=== PATIENT | male | born 1955 | race African-American/Black ===

== ENCOUNTER 2018-08-21 14:43 | Inpatient (IN) | payer MEDICAID ==
[~2018-08-21] VITALS: Ht 190.5 cm; Wt 84.6 kg
[~2018-08-21 14:43] MED LIST: BICA50TA48 PO
[2018-08-21] MEDS ORDERED: ALBUTEROL (0.083%) 2.5MG/3ML NEB HHN STA (15:12)
[2018-08-21] MEDS ORDERED: NITROGLYCERIN OINT 1GM/INCH UDPKT TD ONE (15:15)
[2018-08-21 16:00] LABS: BASOPHILS % 0.8 % (0.0-2.0); HEMATOCRIT. 37.9 % (42.0-52.0); HEMOGLOBIN. 12.5 g/dL (14.0-18.0); LYMPHOCYTES % 14.8 % (20.0-50.0); MEAN CORPUSCULAR HEMOGLOBIN 30.1 pg (28.0-32.0); MEAN CORPUSCULAR VOLUME 91.4 fL (80.0-94.0); MEAN PLATELET VOLUME 9.1 fl (7.4-10.4); MONOCYTES % 7.2 % (2.0-8.0); NEUTROPHILS % 75.2 % (40.0-76.0); PLATELET 204 x1000/uL (130-400); RED BLOOD CELL COUNT 4.15 mill/uL (4.7-6.1); RED CELL DISTRIBUTION WIDTH 16.5 % (11.6-14.6)
[2018-08-21 16:08] LABS: INR 1.1; PARTIAL THROMBOPLASTIN TIME 29.2 sec (23.4-31.0); PROTHROMBIN TIME 11.4 sec (9.1-11.1)
[2018-08-21 16:11] LABS: CHLORIDE 114 mEq/L (98-107)
[2018-08-21] MEDS ORDERED: NITROGLYCERIN 0.4MG TABLET SL SL PRN (16:30)
[2018-08-21] MEDS ORDERED: ASPIRIN 81MG TABLET PO ONE (16:30)
[2018-08-21] MEDS ORDERED: FUROSEMIDE 40MG/4ML VIAL IV ONE (16:30)
[2018-08-21] MEDS ORDERED: LORA10TA7 PO (23:15)
[2018-08-21] MEDS ORDERED: atrovastatin PO (23:32)
[2018-08-21] MEDS ORDERED: METO25TA6 MT (23:32)
[2018-08-21] MEDS ORDERED: ASPI-1159 PO (23:32)
[2018-08-21] MEDS ORDERED: FLUT60LO3 TP (23:32)
[2018-08-21] MEDS ORDERED: LISI-186 PO (23:32)
[2018-08-21] MEDS ORDERED: TAMS0.4C31 PO (23:32)
[2018-08-22] VITALS (8 sets, daily range): BP systolic 108–153; BP diastolic 69–105
[2018-08-22] MEDS ORDERED: METOPROLOL TARTRATE 25MG TABLET PO SCH (09:00)
[2018-08-22] MEDS: LISINOPRIL 20MG TABLET PO SCH (09:14)
[2018-08-22] MEDS: FUROSEMIDE 40MG/4ML VIAL IVP SCH (09:14)
[2018-08-22] MEDS: LORATADINE 10MG TABLET PO SCH (09:14)
[2018-08-22] MEDS: ASPIRIN 81MG TABLET PO SCH (09:15)
[2018-08-22] MEDS: FLUTICASONE PROPIONATE 50MCG/SPRAY BOTTLE BOTHNSTRLS SCH ×2 (09:15→22:37)
[2018-08-22] MEDS: ATORVASTATIN CALCIUM 20MG TABLET PO SCH (20:30)
[2018-08-22] MEDS: CARVEDILOL 6.25 MG TABLET PO SCH (20:31)
[2018-08-22] MEDS: TAMSULOSIN HCL 0.4MG SR CAPSULE PO SCH (20:31)
[2018-08-22] MEDS: HYDROCODONE/ACETAMINOPHEN 5/325MG TABLET PO PRN (22:35)
[2018-08-23 00:01] VITALS: BP 140/95
[2018-08-23 04:07] VITALS: BP 126/88
[2018-08-23 08:00] VITALS: BP 135/103
[2018-08-23] MEDS: FUROSEMIDE 40MG/4ML VIAL IVP SCH ×2 (08:44→17:21)
[2018-08-23] MEDS: ASPIRIN 81MG TABLET PO SCH (08:44)
[2018-08-23] MEDS: LISINOPRIL 20MG TABLET PO SCH (08:45)
[2018-08-23] MEDS: LORATADINE 10MG TABLET PO SCH (08:45)
[2018-08-23] MEDS: CARVEDILOL 6.25 MG TABLET PO SCH (08:45)
[2018-08-23] MEDS: FLUTICASONE PROPIONATE 50MCG/SPRAY BOTTLE BOTHNSTRLS SCH ×2 (08:46→21:24)
[2018-08-23 10:01] VITALS: BP 130/89
[2018-08-23 12:00] VITALS: BP 120/82
[2018-08-23 16:05] VITALS: BP 117/74
[2018-08-23 16:13] LABS: BASOPHILS % 0.9 % (0.0-2.0); EOSINOPHILS % 3.9 % (0.0-5.0); HEMATOCRIT. 37.3 % (42.0-52.0); HEMOGLOBIN. 12.3 g/dL (14.0-18.0); LYMPHOCYTES % 14.4 % (20.0-50.0); MEAN CORPUSCULAR HEMOGLOBIN 29.8 pg (28.0-32.0); MEAN CORPUSCULAR VOLUME 90.5 fL (80.0-94.0); MEAN PLATELET VOLUME 9.2 fl (7.4-10.4); MONOCYTES % 6.9 % (2.0-8.0); NEUTROPHILS % 73.9 % (40.0-76.0); PLATELET 196 x1000/uL (130-400); RED BLOOD CELL COUNT 4.12 mill/uL (4.7-6.1); RED CELL DISTRIBUTION WIDTH 16.7 % (11.6-14.6)
[2018-08-23 16:18] LABS: CHLORIDE 110 mEq/L (98-107)
[2018-08-23] MEDS: CARVEDILOL 12.5MG TABLET PO SCH (21:26)
[2018-08-23] MEDS: TAMSULOSIN HCL 0.4MG SR CAPSULE PO SCH (21:27)
[2018-08-23] MEDS: ATORVASTATIN CALCIUM 20MG TABLET PO SCH (21:27)
[2018-08-24] MEDS: HYDROCODONE/ACETAMINOPHEN 5/325MG TABLET PO PRN (02:20)
[2018-08-24 06:54] LABS: CHLORIDE 109 mEq/L (98-107)
[2018-08-24 08:00] VITALS: BP 132/89
[2018-08-24] MEDS: FLUTICASONE PROPIONATE 50MCG/SPRAY BOTTLE BOTHNSTRLS SCH ×2 (09:39→21:00)
[2018-08-24] MEDS: CARVEDILOL 12.5MG TABLET PO SCH (09:40)
[2018-08-24] MEDS: FUROSEMIDE 40MG/4ML VIAL IVP SCH ×2 (09:40→18:35)
[2018-08-24] MEDS: LORATADINE 10MG TABLET PO SCH (09:40)
[2018-08-24] MEDS: ASPIRIN 81MG TABLET PO SCH (09:40)
[2018-08-24] MEDS: LISINOPRIL 20MG TABLET PO SCH (09:40)
[2018-08-24] MEDS: MAGNESIUM CHLORIDE 64MG TABLET SR PO SCH ×2 (11:28→18:35)
[2018-08-24] MEDS: SPIRONOLACTONE 25MG TABLET PO SCH (11:28)
[2018-08-24 12:00] VITALS: BP 97/62
[2018-08-24 16:00] VITALS: BP 109/71
[2018-08-24 20:06] VITALS: BP 116/75
[2018-08-24] MEDS: ATORVASTATIN CALCIUM 20MG TABLET PO SCH (21:26)
[2018-08-24] MEDS: CARVEDILOL 25MG TABLET PO SCH (21:27)
[2018-08-24] MEDS: TAMSULOSIN HCL 0.4MG SR CAPSULE PO SCH (21:27)
[2018-08-24 22:00] VITALS: BP 116/75
[2018-08-25] VITALS (9 sets, daily range): BP systolic 104–130; BP diastolic 67–80
[2018-08-25] MEDS: SPIRONOLACTONE 25MG TABLET PO SCH (10:33)
[2018-08-25] MEDS: LORATADINE 10MG TABLET PO SCH (10:33)
[2018-08-25] MEDS: LISINOPRIL 20MG TABLET PO SCH (10:33)
[2018-08-25] MEDS: MAGNESIUM CHLORIDE 64MG TABLET SR PO SCH (10:33)
[2018-08-25] MEDS: ASPIRIN 81MG TABLET PO SCH (10:33)
[2018-08-25] MEDS: FUROSEMIDE 40MG/4ML VIAL IVP SCH (10:38)
[2018-08-25] MEDS: CARVEDILOL 25MG TABLET PO SCH (10:38)
== END 2018-08-25 18:45 | disposition home or self-care (01) | DRG 194 ==
LOC: ER 14:43 → 6WST 16:57 → ENRESERV 20:20
PROVIDERS: ADMIT Internal Medicine; ATTEND Internal Medicine
DX: I13.0 Hypertensive heart and chronic kidney disease with heart failure and stage 1 through stage 4 chronic kidney disease, or unspecified chronic kidney disease (principal); E87.8 Other disorders of electrolyte and fluid balance, not elsewhere classified; E44.0 Moderate protein-calorie malnutrition; I27.20 Pulmonary hypertension, unspecified; I08.1 Rheumatic disorders of both mitral and tricuspid valves; I11.0 Hypertensive heart disease with heart failure; I42.9 Cardiomyopathy, unspecified; D64.9 Anemia, unspecified; N18.2 Chronic kidney disease, stage 2 (mild); J44.9 Chronic obstructive pulmonary disease, unspecified; I50.23 Acute on chronic systolic (congestive) heart failure; I44.7 Left bundle-branch block, unspecified; F17.200 Nicotine dependence, unspecified, uncomplicated; Z91.19 Patient's noncompliance with other medical treatment and regimen; Z79.899 Other long term (current) drug therapy; Z79.82 Long term (current) use of aspirin; Z68.23 Body mass index [BMI] 23.0-23.9, adult
CPT/HCPCS: 36415; 71045; 80048; 80061; 83735; 83880; 84145; 84153; 84443; 84484; 93005; 93306; 94640; 96374; 99291; J1940; J7611; G0103

== ENCOUNTER 2018-11-05 08:41 | Inpatient (IN) | payer MEDICAID ==
[~2018-11-05] VITALS: Ht 188 cm; Wt 90.3 kg
[~2018-11-05 08:41] MED LIST changes: +ASPI-1159 PO; -BICA50TA48 PO; +FLUT60LO3 TP; +LORA10TA7 PO; +TAMS0.4C31 PO; +atrovastatin PO
[2018-11-05] MEDS ORDERED: NITROGLYCERIN 0.4MG TABLET SL SL PRN (09:45)
[2018-11-05] MEDS ORDERED: ASPIRIN 81MG TABLET PO ONE (09:45)
[2018-11-05 10:16] LABS: BASOPHILS % 0.7 % (0.0-2.0); HEMATOCRIT. 40.7 % (42.0-52.0); HEMOGLOBIN. 12.9 g/dL (14.0-18.0); LYMPHOCYTES % 13.1 % (20.0-50.0); MEAN CORPUSCULAR HEMOGLOBIN 28.5 pg (28.0-32.0); MEAN CORPUSCULAR VOLUME 89.8 fL (80.0-94.0); MEAN PLATELET VOLUME 8.7 fl (7.4-10.4); NEUTROPHILS % 78.2 % (40.0-76.0); PLATELET 264 x1000/uL (130-400); RED BLOOD CELL COUNT 4.53 mill/uL (4.7-6.1); RED CELL DISTRIBUTION WIDTH 17.5 % (11.6-14.6)
[2018-11-05 10:22] LABS: CHLORIDE 114 mEq/L (98-107)
[2018-11-05] MEDS ORDERED: FUROSEMIDE 40MG/4ML VIAL IVP ONE (10:45)
[2018-11-05 11:50] VITALS: BP 148/98
[2018-11-05] MEDS ORDERED: GUAIFENESIN 200MG/10ML SUGAR FREE UDC PO PRN (14:15)
[2018-11-05] MEDS ORDERED: ONDANSETRON HCL 4MG/2ML INJ IV PRN (14:15)
[2018-11-05] MEDS ORDERED: CLONIDINE 0.1MG TABLET PO PRN (14:15)
[2018-11-05] MEDS ORDERED: NA PHOS,M-B/NA PHOS,DI-BA ENEMA 118ML PR PRN (14:15)
[2018-11-05] MEDS ORDERED: ACETAMINOPHEN 325MG TABLET PO PRN (14:15)
[2018-11-05] MEDS ORDERED: HYDROCODONE/ACETAMINOPHEN 5/325MG TABLET PO PRN (14:15)
[2018-11-05] MEDS ORDERED: DOCUSATE SODIUM 100MG CAPSULE PO PRN (14:15)
[2018-11-05] MEDS ORDERED: ACETAMINOPHEN 650MG SUPP PR PRN (14:15)
[2018-11-05] MEDS ORDERED: ACETAMINOPHEN 650MG/20.3ML UDC GT PRN (14:15)
[2018-11-05] MEDS ORDERED: HYDROCODONE/ACETAMINOPHEN 10/325MG TABLET PO PRN (14:15)
[2018-11-05] MEDS ORDERED: DIPHENHYDRAMINE 50MG/ML VIAL IV PRN (14:15)
[2018-11-05] MEDS ORDERED: MAGNESIUM/ALUMINUM HYDROXIDE/SIMETHICONE 30ML UDC PO PRN (14:15)
[2018-11-05] MEDS ORDERED: IPRATROPIUM/ALBUTEROL 0.5-3(2.5)MG/3ML NEB INH PRN (15:00)
[2018-11-05 16:00] VITALS: BP 119/84
[2018-11-05] MEDS ORDERED: AMLODIPINE 5MG TABLET PO NR (16:00)
[2018-11-05 16:32] LABS: CLARITY URINE CLEAR (CLEAR); COLOR URINE YELLOW (YELLOW); KETONES URINE NEGATIVE (NEGATIVE); LEUKOCYTE ESTERASE URINE NEGATIVE (NEGATIVE); NITRITE URINE NEGATIVE (NEGATIVE); OCCULT BLOOD URINE NEGATIVE (NEGATIVE); PH URINE 5.5 (4.5-8.0); PROTEIN URINE NEGATIVE (NEGATIVE); SPECIFIC GRAVITY URINE 1.007 (1.005-1.030); UROBILINOGEN URINE 0.2 E.U./dL (0.2-1.0)
[2018-11-05] MEDS: ENOXAPARIN 40MG/0.4ML SYR SUBCUT SCH (16:45)
[2018-11-05] MEDS: FUROSEMIDE 40MG/4ML VIAL IV SCH (16:46)
[2018-11-05 16:49] LABS: *AMPHETAMINES SCREEN URINE NEGATIVE (NEGATIVE); *BARBITURATES SCREEN URINE NEGATIVE (NEGATIVE); *BENZODIAZEPINES SCREEN URINE NEGATIVE (NEGATIVE); *COCAINE SCREEN URINE PRESUMTIVE POSITIVE (NEGATIVE)
[2018-11-05 16:50] LABS: CANNABINOID URINE SCREEN PRESUMTIVE POSITIVE (NEGATIVE); METHADONE URINE SCREEN NEGATIVE (NEGATIVE); OPIATES URINE SCREEN NEGATIVE (NEGATIVE); PHENCYCLIDINE URINE SCREEN NEGATIVE (NEGATIVE)
[2018-11-05 20:00] VITALS: BP 126/88
[2018-11-05] MEDS: CARVEDILOL 3.125 MG TABLET PO SCH (20:24)
[2018-11-05] MEDS: SODIUM CHLORIDE 0.9% INJ 3ML FLUSH IVF SCH (21:20)
[2018-11-06] VITALS: BP 119/83
[2018-11-06 00:44] LABS: CREATINE KINASE MB FRACTION 2.5 ng/mL (0.5-3.6)
[2018-11-06 04:00] VITALS: BP 143/59
[2018-11-06] MEDS: SODIUM CHLORIDE 0.9% INJ 3ML FLUSH IVF SCH ×3 (05:26→20:41)
[2018-11-06 06:44] LABS: BASOPHILS % 0.7 % (0.0-2.0); EOSINOPHILS % 2.4 % (0.0-5.0); HEMATOCRIT. 35.9 % (42.0-52.0); HEMOGLOBIN. 11.6 g/dL (14.0-18.0); LYMPHOCYTES % 15.3 % (20.0-50.0); MEAN CORPUSCULAR HEMOGLOBIN 28.3 pg (28.0-32.0); MEAN CORPUSCULAR VOLUME 87.7 fL (80.0-94.0); MEAN PLATELET VOLUME 8.9 fl (7.4-10.4); MONOCYTES % 8.1 % (2.0-8.0); NEUTROPHILS % 73.5 % (40.0-76.0); PLATELET 241 x1000/uL (130-400); RED BLOOD CELL COUNT 4.09 mill/uL (4.7-6.1); RED CELL DISTRIBUTION WIDTH 16.3 % (11.6-14.6)
[2018-11-06 06:56] LABS: CHLORIDE 109 mEq/L (98-107)
[2018-11-06 07:07] LABS: HDL CHOLESTEROL 37 mg/dL (40-59)
[2018-11-06 07:08] LABS: CREATINE KINASE MB FRACTION 2.7 ng/mL (0.5-3.6)
[2018-11-06 07:10] LABS: LDL CHOLESTEROL 37 mg/dL (5-100)
[2018-11-06 07:11] LABS: CREATINE KINASE 83 IU/L (39-308)
[2018-11-06 08:00] VITALS: BP 143/93
[2018-11-06] MEDS ORDERED: FUROSEMIDE 40MG/4ML VIAL IV SCH (09:00)
[2018-11-06] MEDS: FUROSEMIDE 40MG/4ML VIAL IV SCH ×2 (09:17→15:43)
[2018-11-06] MEDS: AMLODIPINE 5MG TABLET PO SCH (09:18)
[2018-11-06] MEDS: CARVEDILOL 3.125 MG TABLET PO SCH ×2 (09:19→20:41)
[2018-11-06] MEDS: ENOXAPARIN 40MG/0.4ML SYR SUBCUT SCH (09:20)
[2018-11-06] MEDS: ASPIRIN 81MG EC TABLET PO SCH (09:21)
[2018-11-06 12:00] VITALS: BP 126/82
[2018-11-06] MEDS ORDERED: POTASSIUM CHLORIDE 20MEQ TABLET SR PO PRN (14:00)
[2018-11-06 16:06] VITALS: BP 104/78
[2018-11-06 20:00] VITALS: BP 116/69
[2018-11-07] VITALS: BP 106/73
[2018-11-07 04:00] VITALS: BP 114/76
[2018-11-07] MEDS: SODIUM CHLORIDE 0.9% INJ 3ML FLUSH IVF SCH ×3 (05:35→21:23)
[2018-11-07] MEDS: FUROSEMIDE 40MG/4ML VIAL IV SCH ×2 (06:53→16:18)
[2018-11-07 07:42] LABS: BASOPHILS % 0.6 % (0.0-2.0); EOSINOPHILS % 3.9 % (0.0-5.0); HEMATOCRIT. 37.4 % (42.0-52.0); HEMOGLOBIN. 11.9 g/dL (14.0-18.0); LYMPHOCYTES % 15.7 % (20.0-50.0); MEAN CORPUSCULAR VOLUME 88.1 fL (80.0-94.0); MEAN PLATELET VOLUME 8.8 fl (7.4-10.4); MONOCYTES % 8.7 % (2.0-8.0); NEUTROPHILS % 71.1 % (40.0-76.0); PLATELET 236 x1000/uL (130-400); RED BLOOD CELL COUNT 4.24 mill/uL (4.7-6.1); RED CELL DISTRIBUTION WIDTH 16.5 % (11.6-14.6)
[2018-11-07 08:15] VITALS: BP 126/75
[2018-11-07 09:23] LABS: CHLORIDE 107 mEq/L (98-107)
[2018-11-07] MEDS: ASPIRIN 81MG EC TABLET PO SCH (09:52)
[2018-11-07] MEDS: CARVEDILOL 3.125 MG TABLET PO SCH ×2 (09:52→21:23)
[2018-11-07] MEDS: ENOXAPARIN 40MG/0.4ML SYR SUBCUT SCH (09:53)
[2018-11-07] MEDS: AMLODIPINE 5MG TABLET PO SCH (09:53)
[2018-11-07] MEDS ORDERED: COR3 PO (13:42)
[2018-11-07] MEDS ORDERED: ASPI-1158 PO (13:42)
[2018-11-07] MEDS ORDERED: AMLO5TAB88 PO (13:42)
[2018-11-07] MEDS ORDERED: FURO80TA87 PO (13:42)
[2018-11-07 16:00] VITALS: BP 116/74
[2018-11-07 20:00] VITALS: BP 124/80
[2018-11-08] VITALS: BP 131/82
[2018-11-08 04:00] VITALS: BP 127/86
[2018-11-08] MEDS: SODIUM CHLORIDE 0.9% INJ 3ML FLUSH IVF SCH ×3 (06:33→21:30)
[2018-11-08] MEDS: FUROSEMIDE 40MG/4ML VIAL IV SCH ×2 (06:33→18:41)
[2018-11-08 08:00] VITALS: BP 116/88
[2018-11-08] MEDS: CARVEDILOL 3.125 MG TABLET PO SCH ×2 (08:05→21:30)
[2018-11-08] MEDS: AMLODIPINE 5MG TABLET PO SCH (08:05)
[2018-11-08] MEDS: ASPIRIN 81MG EC TABLET PO SCH (08:06)
[2018-11-08] MEDS: ENOXAPARIN 40MG/0.4ML SYR SUBCUT SCH (08:06)
[2018-11-08 12:00] VITALS: BP 103/69
[2018-11-08 16:00] VITALS: BP 97/60
[2018-11-08 20:00] VITALS: BP 117/83
[2018-11-09] VITALS: BP 120/78
[2018-11-09 04:00] VITALS: BP 124/75
[2018-11-09] MEDS: SODIUM CHLORIDE 0.9% INJ 3ML FLUSH IVF SCH (05:12)
[2018-11-09] MEDS: FUROSEMIDE 40MG/4ML VIAL IV SCH (06:15)
[2018-11-09 08:00] VITALS: BP 119/86
[2018-11-09] MEDS: CARVEDILOL 3.125 MG TABLET PO SCH (09:05)
[2018-11-09] MEDS: ASPIRIN 81MG EC TABLET PO SCH (09:06)
[2018-11-09] MEDS: AMLODIPINE 5MG TABLET PO SCH (09:06)
[2018-11-09] MEDS: ENOXAPARIN 40MG/0.4ML SYR SUBCUT SCH (09:06)
[2018-11-09 12:00] VITALS: BP 104/74
[2018-11-09 13:31] VITALS: BP 104/74
== END 2018-11-09 14:53 | disposition home or self-care (01) | DRG 194 ==
LOC: ER 08:56 → EDBEDREQ 09:37 → ENRESERV 10:09 → 7WST 10:50 → EDBEDREQ 10:52 → UNDOADMIN 10:58 → 7WST 10:58
PROVIDERS: ADMIT Family Medicine; ATTEND Family Medicine
DX: I11.0 Hypertensive heart disease with heart failure (principal); J96.00 Acute respiratory failure, unspecified whether with hypoxia or hypercapnia; N17.9 Acute kidney failure, unspecified; E44.0 Moderate protein-calorie malnutrition; C77.4 Secondary and unspecified malignant neoplasm of inguinal and lower limb lymph nodes; C79.51 Secondary malignant neoplasm of bone; C61 Malignant neoplasm of prostate; D63.8 Anemia in other chronic diseases classified elsewhere; I50.43 Acute on chronic combined systolic (congestive) and diastolic (congestive) heart failure; T40.5X1A Poisoning by cocaine, accidental (unintentional), initial encounter; Y92.89 Other specified places as the place of occurrence of the external cause; I08.1 Rheumatic disorders of both mitral and tricuspid valves; I27.20 Pulmonary hypertension, unspecified; I42.9 Cardiomyopathy, unspecified; J68.0 Bronchitis and pneumonitis due to chemicals, gases, fumes and vapors; E78.00 Pure hypercholesterolemia, unspecified; F14.90 Cocaine use, unspecified, uncomplicated; I44.7 Left bundle-branch block, unspecified; I50.82 Biventricular heart failure; Z59.0 Homelessness; Z85.46 Personal history of malignant neoplasm of prostate; Z68.25 Body mass index [BMI] 25.0-25.9, adult
CPT/HCPCS: 36415; 71045; 80048; 80061; 80305; 82550; 82553; 83735; 83880; 84484; 93005; 93306; 96374; 99285; J1650; J1940

== ENCOUNTER 2018-12-01 17:00 | Inpatient (IN) | payer MEDICAID ==
[~2018-12-01] VITALS: Ht 188 cm; Wt 84.1 kg
[~2018-12-01 17:00] MED LIST changes: +AMLO5TAB88 PO; +ASPI-1158 PO; +COR3 PO; -FLUT60LO3 TP; +FURO80TA87 PO
[2018-12-01 18:03] LABS: BASOPHILS % 1.2 % (0.0-2.0); EOSINOPHILS % 1.2 % (0.0-5.0); HEMATOCRIT. 42.3 % (42.0-52.0); HEMOGLOBIN. 13.5 g/dL (14.0-18.0); LYMPHOCYTES % 27.3 % (20.0-50.0); MEAN CORPUSCULAR HEMOGLOBIN 27.2 pg (28.0-32.0); MEAN CORPUSCULAR VOLUME 85.5 fL (80.0-94.0); MEAN PLATELET VOLUME 8.2 fl (7.4-10.4); MONOCYTES % 8.9 % (2.0-8.0); NEUTROPHILS % 61.4 % (40.0-76.0); PLATELET 298 x1000/uL (130-400); RED BLOOD CELL COUNT 4.96 mill/uL (4.7-6.1); RED CELL DISTRIBUTION WIDTH 18.1 % (11.6-14.6)
[2018-12-01 18:08] LABS: CHLORIDE 111 mEq/L (98-107)
[2018-12-01 18:10] LABS: INR 1.2; PARTIAL THROMBOPLASTIN TIME 32.1 sec (23.4-31.0); PROTHROMBIN TIME 11.8 sec (9.1-11.1)
[2018-12-01 18:53] LABS: CLARITY URINE CLEAR (CLEAR); COLOR URINE DARK YELLOW (YELLOW); KETONES URINE NEGATIVE (NEGATIVE); LEUKOCYTE ESTERASE URINE NEGATIVE (NEGATIVE); NITRITE URINE NEGATIVE (NEGATIVE); OCCULT BLOOD URINE NEGATIVE (NEGATIVE); PH URINE 5.5 (4.5-8.0); PROTEIN URINE 1+ (NEGATIVE)
[2018-12-01] MEDS ORDERED: DEXTROSE 50% WATER 50ML SYRINGE IV ONE ×3 (19:00→23:15)
[2018-12-01] MEDS ORDERED: INSULIN REGULAR (HUMULIN R) 300UNITS/3ML IV ONE (19:00)
[2018-12-01] MEDS ORDERED: CALCIUM CHLORIDE 1GM/10ML SYR IV ONE (19:00)
[2018-12-01 19:15] LABS: *AMPHETAMINES SCREEN URINE NEGATIVE (NEGATIVE); *BARBITURATES SCREEN URINE NEGATIVE (NEGATIVE); *BENZODIAZEPINES SCREEN URINE NEGATIVE (NEGATIVE); *COCAINE SCREEN URINE PRESUMTIVE POSITIVE (NEGATIVE)
[2018-12-01 19:16] LABS: CANNABINOID URINE SCREEN PRESUMTIVE POSITIVE (NEGATIVE); METHADONE URINE SCREEN NEGATIVE (NEGATIVE); OPIATES URINE SCREEN NEGATIVE (NEGATIVE); PHENCYCLIDINE URINE SCREEN NEGATIVE (NEGATIVE)
[2018-12-01] MEDS ORDERED: ASPIRIN 81MG TABLET PO ONE (21:30)
[2018-12-01] MEDS ORDERED: IOHEXOL-350 100 ML BOTTLE ONE (21:53)
[2018-12-01] MEDS ORDERED: ACETAMINOPHEN 325MG TABLET PO PRN (23:45)
[2018-12-01] MEDS ORDERED: ONDANSETRON HCL 4MG/2ML INJ IV PRN (23:45)
[2018-12-01] MEDS ORDERED: CLONIDINE 0.1MG TABLET PO PRN (23:45)
[2018-12-01] MEDS ORDERED: IPRATROPIUM/ALBUTEROL 0.5-3(2.5)MG/3ML NEB INH PRN (23:45)
[2018-12-01] MEDS ORDERED: DOCUSATE SODIUM 100MG CAPSULE PO PRN (23:45)
[2018-12-01] MEDS ORDERED: ENOXAPARIN 40MG/0.4ML SYR SUBCUT SCH (23:45)
[2018-12-01] MEDS ORDERED: MAGNESIUM/ALUMINUM HYDROXIDE/SIMETHICONE 30ML UDC PO PRN (23:45)
[2018-12-02] MEDS ORDERED: ATOR20TA65 MT (01:56)
[2018-12-02] MEDS: MORPHINE SULFATE 4 MG/ML CPJ (NOT FOR IM USE) IV PRN (02:47)
[2018-12-02 02:50] VITALS: BP 147/90
[2018-12-02 02:53] VITALS: BP 147/90
[2018-12-02] MEDS: IPRATROPIUM/ALBUTEROL 0.5-3(2.5)MG/3ML NEB INH SCH ×5 (03:25→20:43)
[2018-12-02 04:00] VITALS: BP 121/75
[2018-12-02 06:31] LABS: EOSINOPHILS % 1.1 % (0.0-5.0); HEMATOCRIT. 38.1 % (42.0-52.0); HEMOGLOBIN. 12.4 g/dL (14.0-18.0); LYMPHOCYTES % 24.3 % (20.0-50.0); MEAN CORPUSCULAR HEMOGLOBIN 27.3 pg (28.0-32.0); MEAN CORPUSCULAR VOLUME 84.3 fL (80.0-94.0); MEAN PLATELET VOLUME 8.2 fl (7.4-10.4); MONOCYTES % 7.9 % (2.0-8.0); NEUTROPHILS % 65.7 % (40.0-76.0); PLATELET 261 x1000/uL (130-400); RED BLOOD CELL COUNT 4.52 mill/uL (4.7-6.1); RED CELL DISTRIBUTION WIDTH 17.9 % (11.6-14.6)
[2018-12-02 07:31] LABS: CHLORIDE 110 mEq/L (98-107)
[2018-12-02 07:36] LABS: LDL CHOLESTEROL 67 mg/dL (5-100)
[2018-12-02 07:38] LABS: CREATINE KINASE 45 IU/L (39-308)
[2018-12-02 07:39] LABS: HDL CHOLESTEROL 26 mg/dL (40-59)
[2018-12-02 07:41] LABS: CREATINE KINASE MB FRACTION 4.1 ng/mL (0.5-3.6)
[2018-12-02] MEDS ORDERED: ENOXAPARIN 30MG/0.3ML SYR SUBCUT SCH (09:00)
[2018-12-02 12:16] VITALS: BP 140/95
[2018-12-02] MEDS ORDERED: LOSARTAN POTASSIUM 50 MG TABLET PO SCH ×2 (13:30)
[2018-12-02] MEDS: FUROSEMIDE 40MG/4ML VIAL IVP SCH (13:48)
[2018-12-02 13:49] LABS: T4 FREE 1.33 ng/dL (0.76-1.46)
[2018-12-02] MEDS: LOSARTAN POTASSIUM 50 MG TABLET PO SCH (14:11)
[2018-12-02 16:01] VITALS: BP 143/95
[2018-12-02 16:35] LABS: CREATINE KINASE MB FRACTION 2.7 ng/mL (0.5-3.6)
[2018-12-02] MEDS: HYDROCODONE/ACETAMINOPHEN 5/325MG TABLET PO PRN ×2 (18:05→22:55)
[2018-12-02 20:00] VITALS: BP 121/77
[2018-12-02] MEDS: CARVEDILOL 6.25 MG TABLET PO SCH (21:10)
[2018-12-03] VITALS: BP 101/70
[2018-12-03] MEDS: IPRATROPIUM/ALBUTEROL 0.5-3(2.5)MG/3ML NEB INH SCH ×5 (00:46→20:34)
[2018-12-03 04:00] VITALS: BP 111/69
[2018-12-03 07:21] LABS: EOSINOPHILS % 3.1 % (0.0-5.0); HEMATOCRIT. 35.3 % (42.0-52.0); HEMOGLOBIN. 11.4 g/dL (14.0-18.0); LYMPHOCYTES % 30.9 % (20.0-50.0); MEAN CORPUSCULAR HEMOGLOBIN 27.4 pg (28.0-32.0); MEAN CORPUSCULAR VOLUME 84.7 fL (80.0-94.0); MEAN PLATELET VOLUME 8.4 fl (7.4-10.4); MONOCYTES % 9.7 % (2.0-8.0); NEUTROPHILS % 55.3 % (40.0-76.0); PLATELET 211 x1000/uL (130-400); RED BLOOD CELL COUNT 4.17 mill/uL (4.7-6.1); RED CELL DISTRIBUTION WIDTH 17.8 % (11.6-14.6)
[2018-12-03 07:43] LABS: CHLORIDE 106 mEq/L (98-107)
[2018-12-03 08:00] VITALS: BP 127/83
[2018-12-03] MEDS: FUROSEMIDE 40MG/4ML VIAL IVP SCH (08:38)
[2018-12-03] MEDS: CARVEDILOL 6.25 MG TABLET PO SCH (08:38)
[2018-12-03] MEDS: LOSARTAN POTASSIUM 50 MG TABLET PO SCH (08:38)
[2018-12-03] MEDS: ENOXAPARIN 40MG/0.4ML SYR SUBCUT SCH (08:39)
[2018-12-03] MEDS: MORPHINE SULFATE 4 MG/ML CPJ (NOT FOR IM USE) IV PRN (09:39)
[2018-12-03 12:00] VITALS: BP 117/82
[2018-12-03] MEDS: BICALUTAMIDE 50 MG TABLET PO SCH (12:34)
[2018-12-03 16:00] VITALS: BP 124/80
[2018-12-03] MEDS: CARVEDILOL 12.5MG TABLET PO SCH (20:27)
[2018-12-03 20:28] VITALS: BP 124/82
[2018-12-03] MEDS: HYDROCODONE/ACETAMINOPHEN 5/325MG TABLET PO PRN (20:28)
[2018-12-04] VITALS (7 sets, daily range): BP systolic 113–138; BP diastolic 51–87
[2018-12-04] MEDS: IPRATROPIUM/ALBUTEROL 0.5-3(2.5)MG/3ML NEB INH SCH ×4 (00:40→20:50)
[2018-12-04 07:02] LABS: BASOPHILS % 1.3 % (0.0-2.0); EOSINOPHILS % 5.9 % (0.0-5.0); HEMATOCRIT. 34.8 % (42.0-52.0); HEMOGLOBIN. 11.2 g/dL (14.0-18.0); LYMPHOCYTES % 29.4 % (20.0-50.0); MONOCYTES % 11.5 % (2.0-8.0); NEUTROPHILS % 51.9 % (40.0-76.0); PLATELET 188 x1000/uL (130-400); RED BLOOD CELL COUNT 4.14 mill/uL (4.7-6.1); RED CELL DISTRIBUTION WIDTH 17.9 % (11.6-14.6)
[2018-12-04 07:30] LABS: CHLORIDE 107 mEq/L (98-107)
[2018-12-04 08:23] LABS: IMMUNOGLOBULIN A 314 mg/dL (61-437); IMMUNOGLOBULIN G 2624 mg/dL (700-1600); IMMUNOGLOBULIN M 45 mg/dL (20-172)
[2018-12-04] MEDS: ENOXAPARIN 40MG/0.4ML SYR SUBCUT SCH (08:36)
[2018-12-04] MEDS: LOSARTAN POTASSIUM 50 MG TABLET PO SCH (08:36)
[2018-12-04] MEDS: FUROSEMIDE 40MG/4ML VIAL IVP SCH (08:37)
[2018-12-04] MEDS: CARVEDILOL 12.5MG TABLET PO SCH ×2 (08:37→21:12)
[2018-12-04] MEDS: BICALUTAMIDE 50 MG TABLET PO SCH (08:46)
[2018-12-05] VITALS: BP 119/87
[2018-12-05] MEDS: IPRATROPIUM/ALBUTEROL 0.5-3(2.5)MG/3ML NEB INH SCH ×5 (00:30→21:19)
[2018-12-05 04:00] VITALS: BP 109/82
[2018-12-05 07:17] LABS: BASOPHILS % 2.9 % (0.0-2.0); EOSINOPHILS % 6.4 % (0.0-5.0); HEMATOCRIT. 34.1 % (42.0-52.0); HEMOGLOBIN. 10.9 g/dL (14.0-18.0); LYMPHOCYTES % 28.8 % (20.0-50.0); MEAN CORPUSCULAR HEMOGLOBIN 27.1 pg (28.0-32.0); MEAN CORPUSCULAR VOLUME 84.3 fL (80.0-94.0); MEAN PLATELET VOLUME 8.4 fl (7.4-10.4); MONOCYTES % 11.6 % (2.0-8.0); NEUTROPHILS % 50.3 % (40.0-76.0); PLATELET 177 x1000/uL (130-400); RED BLOOD CELL COUNT 4.04 mill/uL (4.7-6.1); RED CELL DISTRIBUTION WIDTH 17.7 % (11.6-14.6)
[2018-12-05 08:00] VITALS: BP 131/77
[2018-12-05 09:18] LABS: CHLORIDE 108 mEq/L (98-107)
[2018-12-05] MEDS: BICALUTAMIDE 50 MG TABLET PO SCH (10:15)
[2018-12-05] MEDS: LOSARTAN POTASSIUM 50 MG TABLET PO SCH (10:15)
[2018-12-05] MEDS: CARVEDILOL 12.5MG TABLET PO SCH ×2 (10:15→20:26)
[2018-12-05] MEDS: FUROSEMIDE 40MG/4ML VIAL IVP SCH (10:15)
[2018-12-05] MEDS: ENOXAPARIN 40MG/0.4ML SYR SUBCUT SCH (10:16)
[2018-12-05 12:00] VITALS: BP 125/82
[2018-12-05 16:00] VITALS: BP 128/89
[2018-12-05 20:00] VITALS: BP 133/84
[2018-12-06] VITALS: BP 123/80
[2018-12-06] MEDS: IPRATROPIUM/ALBUTEROL 0.5-3(2.5)MG/3ML NEB INH SCH ×6 (00:03→16:00)
[2018-12-06 04:00] VITALS: BP 121/75
[2018-12-06 08:00] VITALS: BP 128/87
[2018-12-06] MEDS: CARVEDILOL 12.5MG TABLET PO SCH ×2 (09:27→20:59)
[2018-12-06] MEDS: LOSARTAN POTASSIUM 50 MG TABLET PO SCH (09:27)
[2018-12-06] MEDS: ENOXAPARIN 40MG/0.4ML SYR SUBCUT SCH (09:28)
[2018-12-06] MEDS: BICALUTAMIDE 50 MG TABLET PO SCH (09:28)
[2018-12-06] MEDS: FUROSEMIDE 40MG/4ML VIAL IVP SCH (09:28)
[2018-12-06 16:00] VITALS: BP 112/72
[2018-12-06 20:00] VITALS: BP 120/65
[2018-12-07] VITALS: BP 115/73
[2018-12-07 04:00] VITALS: BP 127/81
[2018-12-07] MEDS: IPRATROPIUM/ALBUTEROL 0.5-3(2.5)MG/3ML NEB INH SCH ×2 (04:32→22:12)
[2018-12-07 08:00] VITALS: BP 130/83
[2018-12-07] MEDS: CARVEDILOL 12.5MG TABLET PO SCH ×2 (09:27→20:56)
[2018-12-07] MEDS: LOSARTAN POTASSIUM 50 MG TABLET PO SCH (09:27)
[2018-12-07] MEDS: BICALUTAMIDE 50 MG TABLET PO SCH (09:30)
[2018-12-07] MEDS: ENOXAPARIN 40MG/0.4ML SYR SUBCUT SCH (09:31)
[2018-12-07] MEDS: FUROSEMIDE 40MG/4ML VIAL IVP SCH (09:31)
[2018-12-07 12:00] VITALS: BP 102/58
[2018-12-07 16:00] VITALS: BP 122/73
[2018-12-07 20:00] VITALS: BP 118/76
[2018-12-08] VITALS: BP 119/85
[2018-12-08] MEDS: IPRATROPIUM/ALBUTEROL 0.5-3(2.5)MG/3ML NEB INH SCH ×5 (02:00→21:10)
[2018-12-08 04:00] VITALS: BP 121/83
[2018-12-08 08:00] VITALS: BP 125/86
[2018-12-08] MEDS: CARVEDILOL 12.5MG TABLET PO SCH ×2 (09:02→20:30)
[2018-12-08] MEDS: LOSARTAN POTASSIUM 50 MG TABLET PO SCH (09:02)
[2018-12-08] MEDS: FUROSEMIDE 40MG/4ML VIAL IVP SCH (09:02)
[2018-12-08] MEDS: BICALUTAMIDE 50 MG TABLET PO SCH (09:03)
[2018-12-08] MEDS: ENOXAPARIN 40MG/0.4ML SYR SUBCUT SCH (09:03)
[2018-12-08 12:00] VITALS: BP 106/70
[2018-12-08 16:00] VITALS: BP 110/71
[2018-12-08 20:00] VITALS: BP 124/76
[2018-12-09] VITALS: BP 126/84
[2018-12-09] MEDS: IPRATROPIUM/ALBUTEROL 0.5-3(2.5)MG/3ML NEB INH SCH ×3 (01:15→09:00)
[2018-12-09 04:00] VITALS: BP 119/78
[2018-12-09 08:00] VITALS: BP 134/83
[2018-12-09] MEDS: FUROSEMIDE 40MG/4ML VIAL IVP SCH (09:27)
[2018-12-09] MEDS: BICALUTAMIDE 50 MG TABLET PO SCH (09:28)
[2018-12-09] MEDS: CARVEDILOL 12.5MG TABLET PO SCH ×2 (09:28→20:48)
[2018-12-09] MEDS: ENOXAPARIN 40MG/0.4ML SYR SUBCUT SCH (09:29)
[2018-12-09] MEDS: LOSARTAN POTASSIUM 50 MG TABLET PO SCH (10:09)
[2018-12-09 12:00] VITALS: BP 120/74
[2018-12-09 16:00] VITALS: BP 120/79
[2018-12-09 18:45] LABS: CHLORIDE 104 mEq/L (98-107)
[2018-12-09 19:33] LABS: EOSINOPHILS % 9.3 % (0.0-5.0); HEMATOCRIT. 34.8 % (42.0-52.0); LYMPHOCYTES % 30.8 % (20.0-50.0); MEAN CORPUSCULAR HEMOGLOBIN 26.7 pg (28.0-32.0); MEAN CORPUSCULAR VOLUME 84.7 fL (80.0-94.0); MEAN PLATELET VOLUME 8.7 fl (7.4-10.4); MONOCYTES % 13.8 % (2.0-8.0); NEUTROPHILS % 45.1 % (40.0-76.0); PLATELET 204 x1000/uL (130-400); RED BLOOD CELL COUNT 4.11 mill/uL (4.7-6.1); RED CELL DISTRIBUTION WIDTH 17.9 % (11.6-14.6)
[2018-12-09 20:00] VITALS: BP 129/92
[2018-12-09] MEDS ORDERED: GUAIFENESIN 200MG/10ML SUGAR FREE UDC PO PRN (22:15)
[2018-12-10] VITALS: BP 122/85
[2018-12-10 04:00] VITALS: BP 139/98
[2018-12-10 08:00] VITALS: BP 115/72
[2018-12-10] MEDS: FUROSEMIDE 40MG/4ML VIAL IVP SCH (09:25)
[2018-12-10] MEDS: CARVEDILOL 12.5MG TABLET PO SCH ×2 (09:26→21:39)
[2018-12-10] MEDS: ENOXAPARIN 40MG/0.4ML SYR SUBCUT SCH (09:26)
[2018-12-10] MEDS: LOSARTAN POTASSIUM 50 MG TABLET PO SCH (09:26)
[2018-12-10] MEDS: BICALUTAMIDE 50 MG TABLET PO SCH (09:26)
[2018-12-10 12:27] VITALS: BP 100/68
[2018-12-10 16:13] VITALS: BP 107/70
[2018-12-10 20:00] VITALS: BP 112/73
[2018-12-11] VITALS: BP 113/73
[2018-12-11 04:00] VITALS: BP 117/87
[2018-12-11] MEDS: BICALUTAMIDE 50 MG TABLET PO SCH (08:38)
[2018-12-11] MEDS: FUROSEMIDE 40MG/4ML VIAL IVP SCH (08:38)
[2018-12-11] MEDS: ENOXAPARIN 40MG/0.4ML SYR SUBCUT SCH (08:38)
[2018-12-11] MEDS: LOSARTAN POTASSIUM 50 MG TABLET PO SCH (08:38)
[2018-12-11] MEDS: CARVEDILOL 12.5MG TABLET PO SCH (08:39)
[2018-12-11 12:09] VITALS: BP 110/74
[2018-12-11 15:55] LABS: CHLORIDE 105 mEq/L (98-107)
[2018-12-11 16:00] LABS: BASOPHILS % 0.1 % (0.0-2.0); EOSINOPHILS % 6.6 % (0.0-5.0); HEMATOCRIT. 31.4 % (42.0-52.0); LYMPHOCYTES % 25.3 % (20.0-50.0); MEAN CORPUSCULAR HEMOGLOBIN 27.1 pg (28.0-32.0); MEAN CORPUSCULAR VOLUME 84.9 fL (80.0-94.0); MEAN PLATELET VOLUME 8.9 fl (7.4-10.4); MONOCYTES % 12.6 % (2.0-8.0); NEUTROPHILS % 55.4 % (40.0-76.0); PLATELET 237 x1000/uL (130-400)
[2018-12-11 16:18] VITALS: BP 116/82
[2018-12-11 16:44] VITALS: BP 116/82
== END 2018-12-11 19:08 | disposition home or self-care (01) | DRG 194 ==
LOC: ER 17:00 → 5WST 21:54 → EDBEDREQTM 22:04 → EDBEDREQ 22:04 → ENRESERV 23:06
PROVIDERS: ADMIT Internal Medicine; ATTEND Internal Medicine
DX: I11.0 Hypertensive heart disease with heart failure (principal); I21.4 Non-ST elevation (NSTEMI) myocardial infarction; E43 Unspecified severe protein-calorie malnutrition; R64 Cachexia; C79.51 Secondary malignant neoplasm of bone; I27.20 Pulmonary hypertension, unspecified; E87.5 Hyperkalemia; G62.9 Polyneuropathy, unspecified; C61 Malignant neoplasm of prostate; I42.9 Cardiomyopathy, unspecified; D64.9 Anemia, unspecified; Z85.46 Personal history of malignant neoplasm of prostate; E78.00 Pure hypercholesterolemia, unspecified; F12.90 Cannabis use, unspecified, uncomplicated; I44.7 Left bundle-branch block, unspecified; I73.9 Peripheral vascular disease, unspecified; I87.2 Venous insufficiency (chronic) (peripheral); L97.909 Non-pressure chronic ulcer of unspecified part of unspecified lower leg with unspecified severity; Z59.0 Homelessness; Z79.82 Long term (current) use of aspirin; Z79.899 Other long term (current) drug therapy; Z91.19 Patient's noncompliance with other medical treatment and regimen; I50.23 Acute on chronic systolic (congestive) heart failure; Z68.23 Body mass index [BMI] 23.0-23.9, adult
CPT/HCPCS: 36415; 71045; 71275; 80048; 80061; 80305; 82550; 82553; 82784; 82962; 83735; 83880; 84153; 84439; 84443; 84481; 84484; 86334; 87804; 93005; 93970; 94640; 96374; 96375; 96376; 97162; 97165; 99291; J1650; J1815; J1940; J2270; J3490; J7620; Q9967; G0103

== ENCOUNTER 2018-12-18 13:39 | Inpatient (IN) | payer MEDICAID ==
[~2018-12-18] VITALS: Ht 188 cm; Wt 90.3 kg
[~2018-12-18 13:39] MED LIST changes: +ATOR20TA65 MT; -LORA10TA7 PO; -atrovastatin PO
[2018-12-18 15:59] LABS: CHLORIDE 114 mEq/L (98-107)
[2018-12-18 16:01] LABS: BASOPHILS % 0.9 % (0.0-2.0); EOSINOPHILS % 1.5 % (0.0-5.0); HEMATOCRIT. 31.8 % (42.0-52.0); HEMOGLOBIN. 10.1 g/dL (14.0-18.0); LYMPHOCYTES % 19.8 % (20.0-50.0); MEAN CORPUSCULAR HEMOGLOBIN 27.3 pg (28.0-32.0); MEAN CORPUSCULAR VOLUME 85.8 fL (80.0-94.0); MONOCYTES % 7.3 % (2.0-8.0); NEUTROPHILS % 70.5 % (40.0-76.0); PLATELET 299 x1000/uL (130-400); RED BLOOD CELL COUNT 3.71 mill/uL (4.7-6.1)
[2018-12-18] MEDS ORDERED: FUROSEMIDE 40MG/4ML VIAL IVP ONE (18:15)
[2018-12-18 21:42] VITALS: BP 139/102
[2018-12-18 22:27] VITALS: BP 142/92
[2018-12-18 23:27] VITALS: BP 146/99
[2018-12-19] VITALS (18 sets, daily range): BP systolic 124–160; BP diastolic 65–119
[2018-12-19] MEDS ORDERED: IPRATROPIUM/ALBUTEROL 0.5-3(2.5)MG/3ML NEB HHN PRN (03:15)
[2018-12-19] MEDS ORDERED: ACETAMINOPHEN 325MG TABLET PO PRN (03:15)
[2018-12-19] MEDS ORDERED: HYDROCODONE/ACETAMINOPHEN 5/325MG TABLET PO PRN (03:15)
[2018-12-19] MEDS ORDERED: ZOLPIDEM TARTRATE 5MG TABLET PO PRN (03:15)
[2018-12-19] MEDS ORDERED: CLONIDINE 0.1MG TABLET PO PRN (03:15)
[2018-12-19 04:14] LABS: BG CARBOXYHEMOGLOBIN 0.5 % (0.5-1.5); BG DEOXYHEMOGLOBIN 5.4 % (0.0-5.0); BG FRACTION INSPIRED OXYGEN 32; BG HCO3 ACT 23.2 mmol/L (22.0-26.0); BG METHEMOGLOBIN 0.3 % (0.0-1.5); BG OXYGEN SATURATION 94.6 % (92.0-98.5); BG OXYHEMOGLOBIN 93.8 % (94.0-97.0); BG PCO2 36.6 mmHg (35.0-45.0); BG PH 7.419 (7.350-7.450); BG PO2 79.6 mmHg (75.0-100.0); BG SAMPLE SITE LEFT BRACHIAL; BG TOTAL HEMOGLOBIN 10.9 g/dL (12.0-18.0); BG VENT MODE NASAL CANNULA
[2018-12-19] MEDS: GUAIFENESIN 200MG/10ML SUGAR FREE UDC PO PRN ×3 (04:17→18:27)
[2018-12-19 07:23] LABS: BASOPHILS % 0.7 % (0.0-2.0); EOSINOPHILS % 1.7 % (0.0-5.0); HEMATOCRIT. 32.3 % (42.0-52.0); HEMOGLOBIN. 10.5 g/dL (14.0-18.0); LYMPHOCYTES % 19.5 % (20.0-50.0); MEAN CORPUSCULAR HEMOGLOBIN 27.9 pg (28.0-32.0); MEAN CORPUSCULAR VOLUME 85.9 fL (80.0-94.0); MEAN PLATELET VOLUME 8.7 fl (7.4-10.4); MONOCYTES % 8.5 % (2.0-8.0); NEUTROPHILS % 69.6 % (40.0-76.0); PLATELET 301 x1000/uL (130-400); RED BLOOD CELL COUNT 3.76 mill/uL (4.7-6.1); RED CELL DISTRIBUTION WIDTH 20.3 % (11.6-14.6)
[2018-12-19 07:31] LABS: CHLORIDE 112 mEq/L (98-107)
[2018-12-19 07:42] LABS: CREATINE KINASE 29 IU/L (39-308)
[2018-12-19 07:46] LABS: CREATINE KINASE MB FRACTION 1.4 ng/mL (0.5-3.6)
[2018-12-19] MEDS: TAMSULOSIN HCL 0.4MG SR CAPSULE PO SCH (08:48)
[2018-12-19] MEDS: ASPIRIN 81MG TABLET PO SCH (08:49)
[2018-12-19] MEDS ORDERED: CARVEDILOL 3.125 MG TABLET PO SCH (09:00)
[2018-12-19] MEDS ORDERED: AMLODIPINE 5MG TABLET PO SCH (09:00)
[2018-12-19] MEDS ORDERED: FUROSEMIDE 40MG TABLET PO SCH (09:00)
[2018-12-19] MEDS: ENOXAPARIN 40MG/0.4ML SYR SUBCUT SCH (09:01)
[2018-12-19] MEDS: LOSARTAN POTASSIUM 50 MG TABLET PO SCH (12:44)
[2018-12-19] MEDS: SPIRONOLACTONE 25MG TABLET PO SCH (12:44)
[2018-12-19 13:46] LABS: CREATINE KINASE 71 IU/L (39-308)
[2018-12-19 13:47] LABS: CREATINE KINASE MB FRACTION < 1.0 ng/mL (0.5-3.6)
[2018-12-19] MEDS ORDERED: ALBUMIN HUMAN 25GM/100ML (25%) IV SCH (14:00)
[2018-12-19] MEDS: ATORVASTATIN CALCIUM 20MG TABLET PO SCH (21:09)
[2018-12-19] MEDS: CARVEDILOL 12.5MG TABLET PO SCH (21:10)
[2018-12-19] MEDS: FUROSEMIDE 40MG/4ML VIAL IVP SCH (21:10)
[2018-12-20] VITALS (18 sets, daily range): BP systolic 102–131; BP diastolic 47–92
[2018-12-20] MEDS: GUAIFENESIN 200MG/10ML SUGAR FREE UDC PO PRN ×2 (04:12→19:17)
[2018-12-20 07:07] LABS: PHOSPHORUS 3.7 mg/dL (2.5-4.9)
[2018-12-20 07:08] LABS: BASOPHILS % 0.7 % (0.0-2.0); EOSINOPHILS % 2.4 % (0.0-5.0); HEMATOCRIT. 29.8 % (42.0-52.0); HEMOGLOBIN. 9.5 g/dL (14.0-18.0); LYMPHOCYTES % 17.4 % (20.0-50.0); MEAN CORPUSCULAR HEMOGLOBIN 27.5 pg (28.0-32.0); MEAN CORPUSCULAR VOLUME 85.8 fL (80.0-94.0); MEAN PLATELET VOLUME 8.5 fl (7.4-10.4); MONOCYTES % 7.8 % (2.0-8.0); NEUTROPHILS % 71.7 % (40.0-76.0); PLATELET 252 x1000/uL (130-400); RED BLOOD CELL COUNT 3.47 mill/uL (4.7-6.1); RED CELL DISTRIBUTION WIDTH 19.8 % (11.6-14.6)
[2018-12-20 07:12] LABS: CLARITY URINE CLEAR (CLEAR); COLOR URINE YELLOW (YELLOW); KETONES URINE NEGATIVE (NEGATIVE); LEUKOCYTE ESTERASE URINE NEGATIVE (NEGATIVE); NITRITE URINE NEGATIVE (NEGATIVE); OCCULT BLOOD URINE NEGATIVE (NEGATIVE); PH URINE 6.5 (4.5-8.0); PROTEIN URINE NEGATIVE (NEGATIVE); SPECIFIC GRAVITY URINE 1.011 (1.005-1.030); UROBILINOGEN URINE 0.2 E.U./dL (0.2-1.0)
[2018-12-20 07:24] LABS: *AMPHETAMINES SCREEN URINE NEGATIVE (NEGATIVE); *BARBITURATES SCREEN URINE NEGATIVE (NEGATIVE); *BENZODIAZEPINES SCREEN URINE NEGATIVE (NEGATIVE); *COCAINE SCREEN URINE NEGATIVE (NEGATIVE); METHADONE URINE SCREEN NEGATIVE (NEGATIVE)
[2018-12-20 07:25] LABS: CANNABINOID URINE SCREEN NEGATIVE (NEGATIVE); OPIATES URINE SCREEN NEGATIVE (NEGATIVE); PHENCYCLIDINE URINE SCREEN NEGATIVE (NEGATIVE)
[2018-12-20] MEDS: ASPIRIN 81MG TABLET PO SCH (08:08)
[2018-12-20] MEDS: ENOXAPARIN 40MG/0.4ML SYR SUBCUT SCH (08:08)
[2018-12-20] MEDS: FUROSEMIDE 40MG/4ML VIAL IVP SCH ×2 (08:08→20:28)
[2018-12-20] MEDS: CARVEDILOL 12.5MG TABLET PO SCH ×2 (08:08→20:28)
[2018-12-20] MEDS: TAMSULOSIN HCL 0.4MG SR CAPSULE PO SCH (08:08)
[2018-12-20] MEDS: SPIRONOLACTONE 25MG TABLET PO SCH (08:08)
[2018-12-20] MEDS: LOSARTAN POTASSIUM 50 MG TABLET PO SCH (08:08)
[2018-12-20] MEDS: ATORVASTATIN CALCIUM 20MG TABLET PO SCH (20:28)
[2018-12-21] VITALS (12 sets, daily range): BP systolic 94–135; BP diastolic 68–88
[2018-12-21] MEDS: GUAIFENESIN 200MG/10ML SUGAR FREE UDC PO PRN (01:11)
[2018-12-21 07:04] LABS: BASOPHILS % 0.6 % (0.0-2.0); EOSINOPHILS % 1.5 % (0.0-5.0); HEMATOCRIT. 31.9 % (42.0-52.0); HEMOGLOBIN. 10.1 g/dL (14.0-18.0); LYMPHOCYTES % 11.8 % (20.0-50.0); MEAN CORPUSCULAR HEMOGLOBIN 27.5 pg (28.0-32.0); MEAN CORPUSCULAR VOLUME 87.4 fL (80.0-94.0); MEAN PLATELET VOLUME 8.9 fl (7.4-10.4); MONOCYTES % 5.9 % (2.0-8.0); NEUTROPHILS % 80.2 % (40.0-76.0); PLATELET 267 x1000/uL (130-400); RED BLOOD CELL COUNT 3.66 mill/uL (4.7-6.1); RED CELL DISTRIBUTION WIDTH 20.6 % (11.6-14.6)
[2018-12-21] MEDS: TAMSULOSIN HCL 0.4MG SR CAPSULE PO SCH (08:20)
[2018-12-21] MEDS: ASPIRIN 81MG TABLET PO SCH (08:20)
[2018-12-21] MEDS: FUROSEMIDE 40MG/4ML VIAL IVP SCH ×2 (08:21→21:53)
[2018-12-21] MEDS: ENOXAPARIN 40MG/0.4ML SYR SUBCUT SCH (08:21)
[2018-12-21] MEDS: CARVEDILOL 12.5MG TABLET PO SCH ×2 (08:21→21:38)
[2018-12-21 08:29] LABS: PHOSPHORUS 3.9 mg/dL (2.5-4.9)
[2018-12-21] MEDS: LOSARTAN POTASSIUM 50 MG TABLET PO SCH (09:00)
[2018-12-21] MEDS: SPIRONOLACTONE 25MG TABLET PO SCH (09:00)
[2018-12-21 13:06] LABS: A/G RATIO 0.6 (0.7-1.7); ALBUMIN 2.7 g/dL (2.9-4.4); ALPHA-1-GLOBULIN 0.3 g/dL (0.0-0.4); ALPHA-2-GLOBULIN 0.7 g/dL (0.4-1.0); BETA GLOBULIN 0.9 g/dL (0.7-1.3); GAMMA GLOBULINS 2.6 g/dL (0.4-1.8); GLOBULIN TOTAL 4.5 g/dL (2.2-3.9); M-SPIKE Not Observed g/dL (Not Observed); TOTAL PROTEIN SERUM 7.2 g/dL (6.0-8.5)
[2018-12-21] MEDS: ATORVASTATIN CALCIUM 20MG TABLET PO SCH (21:37)
[2018-12-22] VITALS (12 sets, daily range): BP systolic 93–122; BP diastolic 51–81
[2018-12-22 07:24] LABS: BASOPHILS % 0.3 % (0.0-2.0); EOSINOPHILS % 0.6 % (0.0-5.0); HEMOGLOBIN. 8.6 g/dL (14.0-18.0); LYMPHOCYTES % 7.2 % (20.0-50.0); MEAN CORPUSCULAR HEMOGLOBIN 27.4 pg (28.0-32.0); MEAN PLATELET VOLUME 8.8 fl (7.4-10.4); MONOCYTES % 4.2 % (2.0-8.0); NEUTROPHILS % 87.7 % (40.0-76.0); PLATELET 205 x1000/uL (130-400); RED BLOOD CELL COUNT 3.13 mill/uL (4.7-6.1); RED CELL DISTRIBUTION WIDTH 20.2 % (11.6-14.6)
[2018-12-22 07:47] LABS: CHLORIDE 107 mEq/L (98-107)
[2018-12-22 08:03] LABS: PHOSPHORUS 3.2 mg/dL (2.5-4.9)
[2018-12-22] MEDS: FUROSEMIDE 40MG/4ML VIAL IVP SCH ×2 (08:22→21:39)
[2018-12-22] MEDS: ASPIRIN 81MG TABLET PO SCH (08:22)
[2018-12-22] MEDS: ENOXAPARIN 40MG/0.4ML SYR SUBCUT SCH (08:24)
[2018-12-22] MEDS: LOSARTAN POTASSIUM 50 MG TABLET PO SCH (08:24)
[2018-12-22] MEDS: SPIRONOLACTONE 25MG TABLET PO SCH (11:14)
[2018-12-22] MEDS: TAMSULOSIN HCL 0.4MG SR CAPSULE PO SCH (11:15)
[2018-12-22] MEDS: CARVEDILOL 12.5MG TABLET PO SCH ×2 (11:15→21:15)
[2018-12-22 16:36] LABS: TOTAL IRON BINDING CAPACITY 276 ug/dL (250-450)
[2018-12-22 16:55] LABS: FOLIC ACID (FOLATE) SERUM 16.8 ng/mL (>5.38)
[2018-12-22] MEDS: ATORVASTATIN CALCIUM 20MG TABLET PO SCH (21:14)
[2018-12-22] MEDS: ENOXAPARIN 30MG/0.3ML SYR SUBCUT SCH (21:59)
[2018-12-23] VITALS (8 sets, daily range): BP systolic 99–122; BP diastolic 64–77
[2018-12-23 07:32] LABS: BASOPHILS % 0.5 % (0.0-2.0); EOSINOPHILS % 2.4 % (0.0-5.0); HEMATOCRIT. 26.6 % (42.0-52.0); HEMOGLOBIN. 8.5 g/dL (14.0-18.0); LYMPHOCYTES % 14.5 % (20.0-50.0); MEAN CORPUSCULAR HEMOGLOBIN 27.7 pg (28.0-32.0); MEAN CORPUSCULAR VOLUME 86.9 fL (80.0-94.0); MEAN PLATELET VOLUME 8.8 fl (7.4-10.4); MONOCYTES % 8.6 % (2.0-8.0); PLATELET 203 x1000/uL (130-400); RED BLOOD CELL COUNT 3.06 mill/uL (4.7-6.1); RED CELL DISTRIBUTION WIDTH 20.5 % (11.6-14.6)
[2018-12-23 07:37] LABS: CHLORIDE 106 mEq/L (98-107)
[2018-12-23 07:55] LABS: PHOSPHORUS 2.8 mg/dL (2.5-4.9)
[2018-12-23] MEDS: ENOXAPARIN 30MG/0.3ML SYR SUBCUT SCH (08:46)
[2018-12-23] MEDS: LOSARTAN POTASSIUM 50 MG TABLET PO SCH (08:47)
[2018-12-23] MEDS: TAMSULOSIN HCL 0.4MG SR CAPSULE PO SCH (08:47)
[2018-12-23] MEDS: ASPIRIN 81MG TABLET PO SCH (08:47)
[2018-12-23] MEDS: CARVEDILOL 12.5MG TABLET PO SCH (08:48)
[2018-12-23] MEDS: SPIRONOLACTONE 25MG TABLET PO SCH (08:48)
[2018-12-23] MEDS: FUROSEMIDE 40MG/4ML VIAL IVP SCH (08:51)
[2018-12-23] MEDS ORDERED: SPIR25TA PO (13:04)
[2018-12-23] MEDS ORDERED: ASPI-1160 PO (13:04)
[2018-12-23] MEDS ORDERED: ZOLP5TAB2 PO (13:04)
[2018-12-23] MEDS ORDERED: TAMS-11 PO (13:04)
[2018-12-23] MEDS ORDERED: LOSA50TA3 PO (13:04)
[2018-12-23] MEDS ORDERED: COR12 PO (13:04)
[2018-12-23] MEDS ORDERED: ATOR20TA PO (13:04)
== END 2018-12-23 16:05 | disposition home or self-care (01) | DRG 194 ==
LOC: ER 13:58 → 3WST 18:15 → EDBEDREQ 18:20 → EDBEDREQSVC 18:20 → ENRESERV 19:57
PROVIDERS: ADMIT Internal Medicine; ATTEND Internal Medicine
PROC: 5A09357 Assistance with Respiratory Ventilation, Less than 24 Consecutive Hours, Continuous Positive Airway Pressure (ICD-10-PCS; 2018-12-18)
PROC: 0JBN0ZZ Excision of Right Lower Leg Subcutaneous Tissue and Fascia, Open Approach (ICD-10-PCS; principal; 2018-12-21)
DX: I13.2 Hypertensive heart and chronic kidney disease with heart failure and with stage 5 chronic kidney disease, or end stage renal disease (principal); E43 Unspecified severe protein-calorie malnutrition; I47.2 Ventricular tachycardia; N17.9 Acute kidney failure, unspecified; C79.51 Secondary malignant neoplasm of bone; N18.6 End stage renal disease; I27.22 Pulmonary hypertension due to left heart disease; C61 Malignant neoplasm of prostate; G62.9 Polyneuropathy, unspecified; D50.9 Iron deficiency anemia, unspecified; I50.23 Acute on chronic systolic (congestive) heart failure; I83.018 Varicose veins of right lower extremity with ulcer other part of lower leg; L97.819 Non-pressure chronic ulcer of other part of right lower leg with unspecified severity; J44.9 Chronic obstructive pulmonary disease, unspecified; I42.9 Cardiomyopathy, unspecified; I87.2 Venous insufficiency (chronic) (peripheral); I73.9 Peripheral vascular disease, unspecified; I47.1 Supraventricular tachycardia; D72.829 Elevated white blood cell count, unspecified; E78.00 Pure hypercholesterolemia, unspecified; E78.5 Hyperlipidemia, unspecified; F12.90 Cannabis use, unspecified, uncomplicated; F14.10 Cocaine abuse, uncomplicated; F17.210 Nicotine dependence, cigarettes, uncomplicated; Z59.0 Homelessness; Z79.82 Long term (current) use of aspirin; Z79.899 Other long term (current) drug therapy; Z71.51 Drug abuse counseling and surveillance of drug abuser; Z71.6 Tobacco abuse counseling; Z68.25 Body mass index [BMI] 25.0-25.9, adult; Z82.49 Family history of ischemic heart disease and other diseases of the circulatory system
CPT/HCPCS: 36415; 36600; 71045; 76770; 80048; 80305; 82375; 82550; 82553; 82607; 82728; 82746; 82805; 83540; 83550; 83605; 83735; 83880; 84100; 84145; 84155; 84165; 84484; 85044; 87070; 87077; 93005; 93970; 94640; 94660; 96374; 99291; J1650; J1940; J7050; J7620; P9047

== ENCOUNTER 2019-01-18 07:39 | Inpatient (IN) | payer MEDICAID ==
[~2019-01-18] VITALS: Ht 183.3 cm; Wt 89.8 kg
[~2019-01-18 07:39] MED LIST changes: -ASPI-1158 PO; -ASPI-1159 PO; +ASPI-1160 PO; +ATOR20TA PO; -ATOR20TA65 MT; +COR12 PO; +LOSA50TA3 PO; +SPIR25TA PO; +TAMS-11 PO; -TAMS0.4C31 PO; +ZOLP5TAB2 PO
[2019-01-18 10:12] LABS: CHLORIDE 105 mEq/L (98-107)
[2019-01-18 10:13] LABS: INR 1.1; PROTHROMBIN TIME 11.4 sec (9.1-11.1)
[2019-01-18 10:16] LABS: HEMATOCRIT. 34.9 % (42.0-52.0); HEMOGLOBIN. 11.2 g/dL (14.0-18.0); MEAN CORPUSCULAR HEMOGLOBIN 27.6 pg (28.0-32.0); MEAN CORPUSCULAR VOLUME 85.5 fL (80.0-94.0); MEAN PLATELET VOLUME 8.2 fl (7.4-10.4); PLATELET 357 x1000/uL (130-400); RED BLOOD CELL COUNT 4.08 mill/uL (4.7-6.1); RED CELL DISTRIBUTION WIDTH 20.5 % (11.6-14.6)
[2019-01-18 10:53] LABS: PLATELET ESTIMATE NORMAL
[2019-01-18] MEDS ORDERED: SODIUM CHLORIDE 0.9% 1,000 ML IV ONE (11:15)
[2019-01-18] MEDS ORDERED: PIPERACILLIN/TAZOBACTAM 3.375GM/50ML PREMIX IV ONE (12:00)
[2019-01-18] MEDS ORDERED: VANCOMYCIN 1 G PREMIX 200 ML IV SCH (12:00)
[2019-01-18 12:51] LABS: CLARITY URINE CLEAR (CLEAR); COLOR URINE YELLOW (YELLOW); KETONES URINE NEGATIVE (NEGATIVE); LEUKOCYTE ESTERASE URINE NEGATIVE (NEGATIVE); NITRITE URINE NEGATIVE (NEGATIVE); OCCULT BLOOD URINE NEGATIVE (NEGATIVE); PROTEIN URINE NEGATIVE (NEGATIVE); SPECIFIC GRAVITY URINE 1.017 (1.005-1.030)
[2019-01-18] MEDS ORDERED: ONDANSETRON HCL 4MG/2ML INJ IV PRN (13:15)
[2019-01-18] MEDS ORDERED: ACETAMINOPHEN 325MG TABLET PO PRN (13:15)
[2019-01-18 19:51] LABS: *AMPHETAMINES SCREEN URINE NEGATIVE (NEGATIVE); *BARBITURATES SCREEN URINE NEGATIVE (NEGATIVE)
[2019-01-18 19:52] LABS: *BENZODIAZEPINES SCREEN URINE NEGATIVE (NEGATIVE); *COCAINE SCREEN URINE PRESUMTIVE POSITIVE (NEGATIVE); CANNABINOID URINE SCREEN PRESUMTIVE POSITIVE (NEGATIVE); METHADONE URINE SCREEN NEGATIVE (NEGATIVE); OPIATES URINE SCREEN NEGATIVE (NEGATIVE); PHENCYCLIDINE URINE SCREEN NEGATIVE (NEGATIVE)
[2019-01-18] MEDS ORDERED: POTASSIUM CHLORIDE 20MEQ TABLET SR PO NR (23:15)
[2019-01-19] VITALS: BP_SYST 110; BP_SYST 130; BP_DIAS 71; BP_DIAS 82
[2019-01-19] MEDS: VANCOMYCIN 1250MG in DEXTROSE 5% WATER 250ML IV SCH ×2 (02:17→08:49)
[2019-01-19] MEDS: CARVEDILOL 3.125 MG TABLET PO SCH ×3 (02:18→20:52)
[2019-01-19] MEDS: ENOXAPARIN 40MG/0.4ML SYR SUBCUT SCH ×2 (02:19→20:53)
[2019-01-19 04:00] VITALS: BP 113/73
[2019-01-19 06:48] LABS: HEMATOCRIT. 31.8 % (42.0-52.0); HEMOGLOBIN. 10.2 g/dL (14.0-18.0); MEAN CORPUSCULAR HEMOGLOBIN 27.3 pg (28.0-32.0); MEAN CORPUSCULAR VOLUME 85.3 fL (80.0-94.0); MEAN PLATELET VOLUME 8.2 fl (7.4-10.4); PLATELET 303 x1000/uL (130-400); RED BLOOD CELL COUNT 3.73 mill/uL (4.7-6.1); RED CELL DISTRIBUTION WIDTH 20.4 % (11.6-14.6)
[2019-01-19 07:00] LABS: CHLORIDE 105 mEq/L (98-107)
[2019-01-19 08:00] VITALS: BP 108/70
[2019-01-19] MEDS: LOSARTAN POTASSIUM 25 MG TABLET PO SCH (08:43)
[2019-01-19] MEDS: FUROSEMIDE 40MG TABLET PO SCH (08:44)
[2019-01-19 12:00] VITALS: BP 90/54
[2019-01-19 14:04] LABS: PLATELET ESTIMATE NORMAL
[2019-01-19 16:00] VITALS: BP 103/64
[2019-01-19] MEDS: CEFTRIAXONE 1 G PREMIX 50 ML IV SCH (16:16)
[2019-01-19] MEDS: CLOTRIMAZOLE 1% CREAM 30GM TOP SCH (17:27)
[2019-01-19] MEDS ORDERED: IPRATROPIUM/ALBUTEROL 0.5-3(2.5)MG/3ML NEB HHN PRN (19:00)
[2019-01-19] MEDS ORDERED: VANCOMYCIN 1,000 MG in DEXT 5% WATER 250 ML IV SCH (19:17)
[2019-01-19 20:00] VITALS: BP 110/67
[2019-01-19] MEDS: VANCOMYCIN 1,000 MG in DEXT 5% WATER 250 ML IV SCH (22:16)
[2019-01-20 02:27] VITALS: BP 109/73
[2019-01-20 05:43] VITALS: BP 114/180
[2019-01-20 07:02] LABS: BASOPHILS % 0.2 % (0.0-2.0); EOSINOPHILS % 7.1 % (0.0-5.0); HEMATOCRIT. 30.9 % (42.0-52.0); HEMOGLOBIN. 10.3 g/dL (14.0-18.0); LYMPHOCYTES % 20.5 % (20.0-50.0); MEAN CORPUSCULAR VOLUME 84.4 fL (80.0-94.0); MEAN PLATELET VOLUME 8.3 fl (7.4-10.4); NEUTROPHILS % 68.2 % (40.0-76.0); PLATELET 275 x1000/uL (130-400); RED BLOOD CELL COUNT 3.66 mill/uL (4.7-6.1); RED CELL DISTRIBUTION WIDTH 20.2 % (11.6-14.6)
[2019-01-20 07:14] LABS: CHLORIDE 107 mEq/L (98-107)
[2019-01-20 08:00] VITALS: BP 117/89
[2019-01-20] MEDS: CEFTRIAXONE 1 G PREMIX 50 ML IV SCH (09:14)
[2019-01-20] MEDS: CARVEDILOL 3.125 MG TABLET PO SCH (09:15)
[2019-01-20] MEDS: LOSARTAN POTASSIUM 25 MG TABLET PO SCH (09:15)
[2019-01-20] MEDS: CLOTRIMAZOLE 1% CREAM 30GM TOP SCH (09:15)
[2019-01-20] MEDS: FUROSEMIDE 40MG TABLET PO SCH (09:15)
[2019-01-20] MEDS: VANCOMYCIN 1,000 MG in DEXT 5% WATER 250 ML IV SCH (10:38)
[2019-01-20 12:00] VITALS: BP 108/68
[2019-01-20 16:00] VITALS: BP 126/84
[2019-01-20 17:34] VITALS: BP 126/84
== END 2019-01-20 17:55 | disposition home health service (06) | DRG 194 ==
LOC: ER 07:44 → 6EST 11:43 → ENRESERV 20:18
PROVIDERS: ADMIT Internal Medicine; ATTEND Internal Medicine
PROC: 0JBN0ZZ Excision of Right Lower Leg Subcutaneous Tissue and Fascia, Open Approach (ICD-10-PCS; principal; 2019-01-19)
DX: I11.0 Hypertensive heart disease with heart failure (principal); E43 Unspecified severe protein-calorie malnutrition; I27.20 Pulmonary hypertension, unspecified; G62.9 Polyneuropathy, unspecified; I83.018 Varicose veins of right lower extremity with ulcer other part of lower leg; B35.3 Tinea pedis; I50.23 Acute on chronic systolic (congestive) heart failure; D64.9 Anemia, unspecified; L97.919 Non-pressure chronic ulcer of unspecified part of right lower leg with unspecified severity; E87.6 Hypokalemia; I87.2 Venous insufficiency (chronic) (peripheral); F19.10 Other psychoactive substance abuse, uncomplicated; J44.9 Chronic obstructive pulmonary disease, unspecified; I42.9 Cardiomyopathy, unspecified; E78.00 Pure hypercholesterolemia, unspecified; E78.5 Hyperlipidemia, unspecified; F12.10 Cannabis abuse, uncomplicated; F14.10 Cocaine abuse, uncomplicated; I73.9 Peripheral vascular disease, unspecified; Z68.26 Body mass index [BMI] 26.0-26.9, adult; Z85.46 Personal history of malignant neoplasm of prostate; Z59.0 Homelessness
CPT/HCPCS: 36415; 73590; 73700; 80048; 80202; 80305; 83880; 87070; 87077; 93971; 96374; 97162; 99285; J0696; J1650; J2543; J3370; J7030; J7050; J7060

== ENCOUNTER 2019-08-13 07:25 | Inpatient (IN) | payer MEDICARE, MEDICAID ==
[~2019-08-13] VITALS: Ht 188 cm; Wt 93.4 kg
[~2019-08-13 07:25] MED LIST changes: +ALLO100T MT; -AMLO5TAB88 PO; +BICA50TA7 MT; -COR3 PO; +DICL50TA7 MT; +FLUT15.88 BOTHNSTRLS; +TRAZ-213 MT
[2019-08-13] MEDS ORDERED: SODIUM CHLORIDE 0.9% 1,000 ML IV ONE (07:56)
[2019-08-13 08:45] LABS: BASOPHILS % 0.8 % (0.0-2.0); EOSINOPHILS % 1.9 % (0.0-5.0); HEMATOCRIT. 33.4 % (42.0-52.0); HEMOGLOBIN. 10.9 g/dL (14.0-18.0); LYMPHOCYTES % 14.3 % (20.0-50.0); MEAN CORPUSCULAR HEMOGLOBIN 30.9 pg (28.0-32.0); MEAN CORPUSCULAR VOLUME 94.4 fL (80.0-94.0); MEAN PLATELET VOLUME 8.5 fl (7.4-10.4); MONOCYTES % 6.5 % (2.0-8.0); NEUTROPHILS % 76.5 % (40.0-76.0); PLATELET 175 x1000/uL (130-400); RED BLOOD CELL COUNT 3.54 mill/uL (4.7-6.1); RED CELL DISTRIBUTION WIDTH 18.2 % (11.6-14.6)
[2019-08-13 08:50] LABS: CREATINE KINASE MB FRACTION 2.4 ng/mL (0.5-3.6)
[2019-08-13] MEDS ORDERED: ALBUTEROL (0.083%) 2.5MG/3ML NEB HHN STA (09:52)
[2019-08-13] MEDS ORDERED: IPRATROPIUM BROMIDE (0.02%) 0.5MG/2.5ML NEB HHN STA (09:52)
[2019-08-13 10:28] LABS: CHLORIDE 120 mEq/L (98-107)
[2019-08-13 10:32] LABS: ETHANOL BLOOD < 10 mg/dL
[2019-08-13] MEDS ORDERED: FUROSEMIDE 20MG/2ML VIAL IVP ONE (10:45)
[2019-08-13 11:05] LABS: *AMPHETAMINES SCREEN URINE NEGATIVE (NEGATIVE); *BARBITURATES SCREEN URINE NEGATIVE (NEGATIVE)
[2019-08-13 11:06] LABS: *BENZODIAZEPINES SCREEN URINE NEGATIVE (NEGATIVE); *COCAINE SCREEN URINE NEGATIVE (NEGATIVE); CANNABINOID URINE SCREEN PRESUMTIVE POSITIVE (NEGATIVE); METHADONE URINE SCREEN NEGATIVE (NEGATIVE); OPIATES URINE SCREEN NEGATIVE (NEGATIVE); PHENCYCLIDINE URINE SCREEN NEGATIVE (NEGATIVE)
[2019-08-13] MEDS ORDERED: ONDANSETRON HCL 4MG/2ML INJ IV PRN (12:00)
[2019-08-13] MEDS ORDERED: MAGNESIUM/ALUMINUM HYDROXIDE/SIMETHICONE 30ML UDC PO PRN (12:00)
[2019-08-13] MEDS ORDERED: DIPHENHYDRAMINE 50MG/ML VIAL IV PRN (12:00)
[2019-08-13] MEDS ORDERED: CLONIDINE 0.1MG TABLET PO PRN (12:00)
[2019-08-13] MEDS ORDERED: IPRATROPIUM/ALBUTEROL 0.5-3(2.5)MG/3ML NEB HHN PRN (12:00)
[2019-08-13 12:05] LABS: PHOSPHORUS 3.4 mg/dL (2.5-4.9)
[2019-08-13] MEDS: ENOXAPARIN 40MG/0.4ML SYR SUBCUT SCH (12:59)
[2019-08-13 13:45] VITALS: BP 165/95
[2019-08-13] MEDS ORDERED: METO-396 MT (14:56)
[2019-08-13] MEDS ORDERED: LISI-186 MT (14:56)
[2019-08-13] MEDS: AMIODARONE HCL 200 MG TABLET PO SCH (15:19)
[2019-08-13] MEDS: LISINOPRIL 10MG TABLET PO SCH ×2 (15:19→21:43)
[2019-08-13] MEDS: CARVEDILOL 12.5MG TABLET PO SCH ×2 (15:19→21:43)
[2019-08-13] MEDS: HYDROCODONE/ACETAMINOPHEN 5/325MG TABLET PO PRN (15:26)
[2019-08-13 15:30] VITALS: BP 165/118
[2019-08-13 16:00] VITALS: BP 65/95
[2019-08-13] MEDS: FUROSEMIDE 40MG/4ML VIAL IV SCH (18:10)
[2019-08-13 20:00] VITALS: BP 119/81
[2019-08-14] VITALS (7 sets, daily range): BP systolic 110–134; BP diastolic 72–100
[2019-08-14] MEDS: HYDROCODONE/ACETAMINOPHEN 5/325MG TABLET PO PRN ×3 (00:22→20:57)
[2019-08-14] MEDS: FUROSEMIDE 40MG/4ML VIAL IV SCH ×2 (06:23→17:09)
[2019-08-14 08:02] LABS: BASOPHILS % 0.8 % (0.0-2.0); EOSINOPHILS % 4.2 % (0.0-5.0); HEMATOCRIT. 32.5 % (42.0-52.0); HEMOGLOBIN. 10.5 g/dL (14.0-18.0); MEAN CORPUSCULAR HEMOGLOBIN 30.7 pg (28.0-32.0); MEAN CORPUSCULAR VOLUME 94.6 fL (80.0-94.0); MEAN PLATELET VOLUME 8.9 fl (7.4-10.4); MONOCYTES % 5.8 % (2.0-8.0); NEUTROPHILS % 68.2 % (40.0-76.0); PLATELET 176 x1000/uL (130-400); RED BLOOD CELL COUNT 3.44 mill/uL (4.7-6.1); RED CELL DISTRIBUTION WIDTH 18.6 % (11.6-14.6)
[2019-08-14 08:05] LABS: CHLORIDE 114 mEq/L (98-107)
[2019-08-14 08:18] LABS: HDL CHOLESTEROL 39 mg/dL (40-59); LDL CHOLESTEROL 56 mg/dL (5-100)
[2019-08-14] MEDS: CARVEDILOL 12.5MG TABLET PO SCH ×2 (08:37→20:57)
[2019-08-14] MEDS: LISINOPRIL 10MG TABLET PO SCH ×2 (08:37→20:58)
[2019-08-14] MEDS: ENOXAPARIN 40MG/0.4ML SYR SUBCUT SCH (08:38)
[2019-08-14] MEDS: AMIODARONE HCL 200 MG TABLET PO SCH ×2 (08:38→17:09)
[2019-08-15] MEDS: ACETAMINOPHEN 325MG TABLET PO PRN ×2 (02:01)
[2019-08-15] MEDS: HYDROCODONE/ACETAMINOPHEN 5/325MG TABLET PO PRN ×2 (02:02→12:32)
[2019-08-15 04:53] VITALS: BP 116/80
[2019-08-15 08:08] VITALS: BP 117/79
[2019-08-15] MEDS: CARVEDILOL 12.5MG TABLET PO SCH ×2 (08:10→21:00)
[2019-08-15] MEDS: AMIODARONE HCL 200 MG TABLET PO SCH ×2 (08:10→16:46)
[2019-08-15] MEDS: ENOXAPARIN 40MG/0.4ML SYR SUBCUT SCH (08:10)
[2019-08-15] MEDS: LISINOPRIL 10MG TABLET PO SCH ×2 (08:11→21:12)
[2019-08-15] MEDS: FUROSEMIDE 40MG/4ML VIAL IV SCH ×2 (08:50→16:46)
[2019-08-15] MEDS ORDERED: AMI2 PO (11:12)
[2019-08-15] MEDS ORDERED: FURO10VI3 PO (11:12)
[2019-08-15 12:05] VITALS: BP 115/75
[2019-08-15 16:00] VITALS: BP 99/57
[2019-08-15 16:03] VITALS: BP 114/83
[2019-08-15 20:00] VITALS: BP 112/71
[2019-08-16] VITALS: BP 113/84
[2019-08-16] MEDS: HYDROCODONE/ACETAMINOPHEN 5/325MG TABLET PO PRN (00:01)
[2019-08-16 04:00] VITALS: BP 122/87
[2019-08-16] MEDS: FUROSEMIDE 40MG/4ML VIAL IV SCH (06:42)
[2019-08-16] MEDS: LISINOPRIL 10MG TABLET PO SCH (08:44)
[2019-08-16] MEDS: AMIODARONE HCL 200 MG TABLET PO SCH (08:44)
[2019-08-16] MEDS: ENOXAPARIN 40MG/0.4ML SYR SUBCUT SCH (08:45)
[2019-08-16] MEDS: CARVEDILOL 12.5MG TABLET PO SCH (08:45)
[2019-08-16 12:58] VITALS: BP 100/51
== END 2019-08-16 15:15 | disposition home or self-care (01) | DRG 291 ==
LOC: ER 07:25 → 5WST 10:56 → EDBEDREQ 11:07 → ENRESERV 13:35
PROVIDERS: ADMIT Internal Medicine; ATTEND Internal Medicine
DX: I13.0 Hypertensive heart and chronic kidney disease with heart failure and stage 1 through stage 4 chronic kidney disease, or unspecified chronic kidney disease (principal); I50.23 Acute on chronic systolic (congestive) heart failure; L97.819 Non-pressure chronic ulcer of other part of right lower leg with unspecified severity; J44.9 Chronic obstructive pulmonary disease, unspecified; I42.9 Cardiomyopathy, unspecified; N18.2 Chronic kidney disease, stage 2 (mild); I87.8 Other specified disorders of veins; F19.10 Other psychoactive substance abuse, uncomplicated; F14.10 Cocaine abuse, uncomplicated; C61 Malignant neoplasm of prostate; R06.89 Other abnormalities of breathing; D64.9 Anemia, unspecified; I27.20 Pulmonary hypertension, unspecified; I73.9 Peripheral vascular disease, unspecified; E78.5 Hyperlipidemia, unspecified; E78.00 Pure hypercholesterolemia, unspecified; Z59.0 Homelessness
CPT/HCPCS: 36415; 71045; 80061; 80305; 80320; 82140; 82550; 82553; 83615; 83735; 83880; 84100; 84484; 93005; 93970; 94640; 96372; 99285; J1200; J1650; J1940; J7030; J7611; G0480

== ENCOUNTER 2019-09-17 13:05 | Inpatient (IN) | payer MEDICARE, MEDICAID ==
[~2019-09-17] VITALS: Ht 185.4 cm; Wt 93.9 kg
[~2019-09-17 13:05] MED LIST changes: +AMI2 PO; +FURO10VI3 PO; -FURO80TA87 PO; +LISI-186 MT; +METO-396 MT
[2019-09-17 14:58] LABS: CHLORIDE 113 mEq/L (98-107)
[2019-09-17 15:01] LABS: BASOPHILS % 0.7 % (0.0-2.0); EOSINOPHILS % 1.4 % (0.0-5.0); HEMATOCRIT. 37.4 % (42.0-52.0); HEMOGLOBIN. 11.9 g/dL (14.0-18.0); MEAN CORPUSCULAR HEMOGLOBIN 29.7 pg (28.0-32.0); MEAN CORPUSCULAR VOLUME 93.1 fL (80.0-94.0); MEAN PLATELET VOLUME 8.6 fl (7.4-10.4); MONOCYTES % 7.3 % (2.0-8.0); NEUTROPHILS % 79.6 % (40.0-76.0); PLATELET 227 x1000/uL (130-400); RED BLOOD CELL COUNT 4.02 mill/uL (4.7-6.1); RED CELL DISTRIBUTION WIDTH 18.7 % (11.6-14.6)
[2019-09-17] MEDS ORDERED: ASPIRIN 81MG TABLET PO ONE (15:30)
[2019-09-17] MEDS ORDERED: FUROSEMIDE 40MG/4ML VIAL IVP ONE (15:30)
[2019-09-17 18:45] VITALS: BP 144/101
[2019-09-17] MEDS ORDERED: INFLUENZA VIRUS VACCINE(AFLURIA) 0.5ML SYR IM ONE (19:15)
[2019-09-17] MEDS ORDERED: PNEUMOCOCCAL 23-VAL P-SAC VAC 0.5 ML IM ONE (19:15)
[2019-09-17 20:00] VITALS: BP_SYST 144; BP_SYST 148; BP_DIAS 101; BP_DIAS 107
[2019-09-17] MEDS ORDERED: CLONIDINE 0.1MG TABLET PO PRN (20:30)
[2019-09-17] MEDS ORDERED: ZOLPIDEM TARTRATE 5MG TABLET PO PRN (20:45)
[2019-09-17] MEDS ORDERED: FUROSEMIDE 40MG TABLET PO SCH (21:00)
[2019-09-17] MEDS: CARVEDILOL 12.5MG TABLET PO SCH (21:32)
[2019-09-17] MEDS: ATORVASTATIN CALCIUM 20MG TABLET PO SCH (21:32)
[2019-09-17] MEDS: TRAZODONE HCL 50MG TABLET PO SCH (21:33)
[2019-09-17] MEDS ORDERED: IPRATROPIUM/ALBUTEROL 0.5-3(2.5)MG/3ML NEB HHN PRN (23:00)
[2019-09-18] VITALS: BP 148/105
[2019-09-18] MEDS: LISINOPRIL 20MG TABLET PO SCH ×2 (00:22→08:59)
[2019-09-18 04:00] VITALS: BP 114/79
[2019-09-18] MEDS: FUROSEMIDE 40MG/4ML VIAL IVP SCH ×2 (05:54→17:22)
[2019-09-18 07:30] LABS: HEMATOCRIT 37.4 % (42.0-52.0); HEMOGLOBIN 11.8 g/dL (14.0-18.0); MEAN CORPUSCULAR HEMOGLOBIN 29.5 pg (28.0-32.0); MEAN CORPUSCULAR VOLUME 93.5 fL (80.0-94.0); PLATELET 227 x1000/uL (130-400); RED CELL DISTRIBUTION WIDTH 18.5 % (11.6-14.6)
[2019-09-18 08:00] VITALS: BP 110/73
[2019-09-18 08:09] LABS: CHLORIDE 113 mEq/L (98-107)
[2019-09-18] MEDS: TAMSULOSIN HCL 0.4MG SR CAPSULE PO SCH (08:59)
[2019-09-18] MEDS: AMIODARONE HCL 200 MG TABLET PO SCH ×2 (08:59→17:22)
[2019-09-18] MEDS: ASPIRIN 81MG TABLET PO SCH (09:00)
[2019-09-18] MEDS: ALLOPURINOL 100 MG TABLET PO SCH (09:00)
[2019-09-18] MEDS: CARVEDILOL 12.5MG TABLET PO SCH ×2 (09:00→20:36)
[2019-09-18 12:00] VITALS: BP 103/66
[2019-09-18] MEDS: ENOXAPARIN 40MG/0.4ML SYR SUBCUT SCH (13:46)
[2019-09-18 16:00] VITALS: BP 112/74
[2019-09-18 20:00] VITALS: BP 116/77
[2019-09-18] MEDS: ATORVASTATIN CALCIUM 20MG TABLET PO SCH (20:36)
[2019-09-18] MEDS: TRAZODONE HCL 50MG TABLET PO SCH (20:37)
[2019-09-18] MEDS: NYSTATIN 100,000 UNITS/GM OINT 15GM TOP SCH (20:37)
[2019-09-18 23:32] LABS: CLARITY URINE CLEAR (CLEAR); COLOR URINE YELLOW (YELLOW); KETONES URINE NEGATIVE (NEGATIVE); LEUKOCYTE ESTERASE URINE 2+ (NEGATIVE); NITRITE URINE NEGATIVE (NEGATIVE); OCCULT BLOOD URINE NEGATIVE (NEGATIVE); PROTEIN URINE NEGATIVE (NEGATIVE); SPECIFIC GRAVITY URINE 1.007 (1.005-1.030)
[2019-09-18 23:44] LABS: *AMPHETAMINES SCREEN URINE NEGATIVE (NEGATIVE); *BARBITURATES SCREEN URINE NEGATIVE (NEGATIVE); *BENZODIAZEPINES SCREEN URINE NEGATIVE (NEGATIVE); *COCAINE SCREEN URINE PRESUMTIVE POSITIVE (NEGATIVE); CANNABINOID URINE SCREEN NEGATIVE (NEGATIVE); METHADONE URINE SCREEN NEGATIVE (NEGATIVE); OPIATES URINE SCREEN NEGATIVE (NEGATIVE); PHENCYCLIDINE URINE SCREEN NEGATIVE (NEGATIVE)
[2019-09-19] VITALS: BP 120/77
[2019-09-19 04:00] VITALS: BP 129/87
[2019-09-19] MEDS: FUROSEMIDE 40MG/4ML VIAL IVP SCH ×2 (06:02→17:05)
[2019-09-19 06:43] LABS: CHLORIDE 110 mEq/L (98-107)
[2019-09-19 08:00] VITALS: BP 136/91
[2019-09-19] MEDS: ASPIRIN 81MG TABLET PO SCH (08:32)
[2019-09-19] MEDS: LISINOPRIL 20MG TABLET PO SCH (08:32)
[2019-09-19] MEDS: TAMSULOSIN HCL 0.4MG SR CAPSULE PO SCH (08:32)
[2019-09-19] MEDS: AMIODARONE HCL 200 MG TABLET PO SCH ×2 (08:32→17:05)
[2019-09-19] MEDS: CARVEDILOL 12.5MG TABLET PO SCH ×2 (08:32→21:12)
[2019-09-19] MEDS: GUAIFENESIN 200MG/10ML SUGAR FREE UDC PO PRN ×3 (08:33→21:13)
[2019-09-19] MEDS: ALLOPURINOL 100 MG TABLET PO SCH (09:00)
[2019-09-19 11:03] LABS: BASOPHILS % 0.2 % (0.0-2.0); EOSINOPHILS % 3.8 % (0.0-5.0); HEMATOCRIT. 34.9 % (42.0-52.0); HEMOGLOBIN. 11.1 g/dL (14.0-18.0); LYMPHOCYTES % 15.6 % (20.0-50.0); MEAN CORPUSCULAR HEMOGLOBIN 29.6 pg (28.0-32.0); MEAN CORPUSCULAR VOLUME 93.1 fL (80.0-94.0); MEAN PLATELET VOLUME 9.3 fl (7.4-10.4); MONOCYTES % 8.5 % (2.0-8.0); NEUTROPHILS % 71.9 % (40.0-76.0); PLATELET 209 x1000/uL (130-400); RED BLOOD CELL COUNT 3.75 mill/uL (4.7-6.1); RED CELL DISTRIBUTION WIDTH 18.3 % (11.6-14.6)
[2019-09-19 12:00] VITALS: BP 110/76
[2019-09-19 16:00] VITALS: BP 116/71
[2019-09-19] MEDS: NYSTATIN 100,000 UNITS/GM OINT 15GM TOP SCH ×2 (17:06→21:14)
[2019-09-19] MEDS: ENOXAPARIN 40MG/0.4ML SYR SUBCUT SCH (17:06)
[2019-09-19 20:00] VITALS: BP 112/75
[2019-09-19] MEDS: ATORVASTATIN CALCIUM 20MG TABLET PO SCH (21:11)
[2019-09-19] MEDS: TRAZODONE HCL 50MG TABLET PO SCH (21:12)
[2019-09-20] VITALS: BP 93/35
[2019-09-20 04:00] VITALS: BP 106/91
[2019-09-20] MEDS: FUROSEMIDE 40MG/4ML VIAL IVP SCH ×2 (06:16→17:00)
[2019-09-20 08:20] VITALS: BP 117/74
[2019-09-20] MEDS: LISINOPRIL 20MG TABLET PO SCH (08:54)
[2019-09-20] MEDS: CARVEDILOL 12.5MG TABLET PO SCH ×2 (08:54→20:45)
[2019-09-20] MEDS: ALLOPURINOL 100 MG TABLET PO SCH (08:54)
[2019-09-20] MEDS: AMIODARONE HCL 200 MG TABLET PO SCH ×2 (08:54→17:01)
[2019-09-20] MEDS: TAMSULOSIN HCL 0.4MG SR CAPSULE PO SCH (08:54)
[2019-09-20] MEDS: ASPIRIN 81MG TABLET PO SCH (08:54)
[2019-09-20] MEDS: NYSTATIN 100,000 UNITS/GM OINT 15GM TOP SCH ×2 (08:55→20:57)
[2019-09-20 16:00] VITALS: BP 109/76
[2019-09-20] MEDS: ENOXAPARIN 40MG/0.4ML SYR SUBCUT SCH (16:47)
[2019-09-20 20:00] VITALS: BP 109/77
[2019-09-20] MEDS: TRAZODONE HCL 50MG TABLET PO SCH (20:53)
[2019-09-20] MEDS: ATORVASTATIN CALCIUM 20MG TABLET PO SCH (20:53)
[2019-09-21] VITALS: BP 119/83
[2019-09-21 04:00] VITALS: BP 120/80
[2019-09-21] MEDS: FUROSEMIDE 40MG/4ML VIAL IVP SCH (06:39)
[2019-09-21 08:18] VITALS: BP 128/87
[2019-09-21] MEDS: LISINOPRIL 20MG TABLET PO SCH (08:27)
[2019-09-21] MEDS: ASPIRIN 81MG TABLET PO SCH (08:27)
[2019-09-21] MEDS: TAMSULOSIN HCL 0.4MG SR CAPSULE PO SCH (08:27)
[2019-09-21] MEDS: CARVEDILOL 12.5MG TABLET PO SCH (08:27)
[2019-09-21] MEDS: ALLOPURINOL 100 MG TABLET PO SCH (08:27)
[2019-09-21] MEDS: AMIODARONE HCL 200 MG TABLET PO SCH (08:27)
[2019-09-21] MEDS: NYSTATIN 100,000 UNITS/GM OINT 15GM TOP SCH (08:28)
[2019-09-21 09:49] VITALS: BP 128/87
== END 2019-09-21 12:15 | disposition home or self-care (01) | DRG 682 ==
LOC: ER 13:05 → 8WST 16:31 → EDBEDREQ 16:35 → ENRESERV 16:48
PROVIDERS: ADMIT Internal Medicine; ATTEND Internal Medicine
DX: N17.0 Acute kidney failure with tubular necrosis (principal); I50.23 Acute on chronic systolic (congestive) heart failure; I13.0 Hypertensive heart and chronic kidney disease with heart failure and stage 1 through stage 4 chronic kidney disease, or unspecified chronic kidney disease; E44.0 Moderate protein-calorie malnutrition; I47.2 Ventricular tachycardia; I42.9 Cardiomyopathy, unspecified; N18.9 Chronic kidney disease, unspecified; D64.9 Anemia, unspecified; J44.9 Chronic obstructive pulmonary disease, unspecified; E11.22 Type 2 diabetes mellitus with diabetic chronic kidney disease; E78.5 Hyperlipidemia, unspecified; E87.8 Other disorders of electrolyte and fluid balance, not elsewhere classified; E78.00 Pure hypercholesterolemia, unspecified; I08.0 Rheumatic disorders of both mitral and aortic valves; Z60.2 Problems related to living alone; I44.7 Left bundle-branch block, unspecified; Z68.27 Body mass index [BMI] 27.0-27.9, adult; Z79.899 Other long term (current) drug therapy; Z91.19 Patient's noncompliance with other medical treatment and regimen; Z79.82 Long term (current) use of aspirin
CPT/HCPCS: 36415; 71045; 80048; 80305; 81003; 82962; 83880; 84484; 85027; 87070; 90686; 90732; 93005; 99285; J1650; J1940

== ENCOUNTER 2019-10-30 15:20 | Inpatient (IN) | payer MEDICARE, MEDICAID ==
[~2019-10-30] VITALS: Ht 188 cm; Wt 96.2 kg
[~2019-10-30 15:20] MED LIST changes: +FLUT15.844 BOTHNSTRLS; -FLUT15.88 BOTHNSTRLS; -TRAZ-213 MT; +TRAZ-252 MT
[2019-10-30] MEDS ORDERED: NITROGLYCERIN OINT 1GM/INCH UDPKT TD ONE (22:15)
[2019-10-30 23:05] LABS: BASOPHILS % 0.4 % (0.0-2.0); EOSINOPHILS % 0.8 % (0.0-5.0); HEMATOCRIT. 33.1 % (42.0-52.0); HEMOGLOBIN. 10.5 g/dL (14.0-18.0); LYMPHOCYTES % 7.4 % (20.0-50.0); MEAN CORPUSCULAR HEMOGLOBIN 27.1 pg (28.0-32.0); MEAN CORPUSCULAR VOLUME 85.8 fL (80.0-94.0); MEAN PLATELET VOLUME 7.7 fl (7.4-10.4); MONOCYTES % 5.7 % (2.0-8.0); NEUTROPHILS % 85.7 % (40.0-76.0); PLATELET 424 x1000/uL (130-400); RED BLOOD CELL COUNT 3.86 mill/uL (4.7-6.1); RED CELL DISTRIBUTION WIDTH 19.4 % (11.6-14.6)
[2019-10-30 23:08] LABS: CHLORIDE 113 mEq/L (98-107)
[2019-10-30 23:09] LABS: INR 1.3
[2019-10-30] MEDS ORDERED: FUROSEMIDE 20MG/2ML VIAL IVP ONE (23:30)
[2019-10-31] MEDS ORDERED: SODIUM CHLORIDE 0.9% 250 ML IV ONE (00:13)
[2019-10-31] MEDS ORDERED: ASPIRIN 325MG EC TABLET PO ONE (01:15)
[2019-10-31 01:23] LABS: CLARITY URINE CLEAR (CLEAR); COLOR URINE DARK YELLOW (YELLOW); KETONES URINE NEGATIVE (NEGATIVE); LEUKOCYTE ESTERASE URINE NEGATIVE (NEGATIVE); NITRITE URINE NEGATIVE (NEGATIVE); OCCULT BLOOD URINE NEGATIVE (NEGATIVE); PH URINE 5.5 (4.5-8.0); PROTEIN URINE 1+ (NEGATIVE); SPECIFIC GRAVITY URINE 1.022 (1.005-1.030)
[2019-10-31] MEDS ORDERED: CLONIDINE 0.1MG TABLET PO PRN (10:00)
[2019-10-31] MEDS ORDERED: ACETAMINOPHEN 650MG/20.3ML UDC GT PRN (10:00)
[2019-10-31] MEDS ORDERED: ONDANSETRON HCL 4MG/2ML INJ IV PRN (10:00)
[2019-10-31] MEDS ORDERED: NA PHOS,M-B/NA PHOS,DI-BA ENEMA 118ML PR PRN (10:00)
[2019-10-31] MEDS ORDERED: HYDROCODONE/ACETAMINOPHEN 5/325MG TABLET PO PRN (10:00)
[2019-10-31] MEDS ORDERED: ACETAMINOPHEN 650MG SUPP PR PRN (10:00)
[2019-10-31] MEDS ORDERED: ACETAMINOPHEN 325MG TABLET PO PRN (10:00)
[2019-10-31] MEDS ORDERED: DIPHENHYDRAMINE 50MG/ML VIAL IV PRN (10:00)
[2019-10-31] MEDS ORDERED: CEFTRIAXONE 1 G PREMIX 50 ML IV SCH ×2 (10:00→10:15)
[2019-10-31] MEDS ORDERED: GUAIFENESIN 200MG/10ML SUGAR FREE UDC PO PRN (10:00)
[2019-10-31] MEDS ORDERED: IPRATROPIUM/ALBUTEROL 0.5-3(2.5)MG/3ML NEB HHN PRN (10:00)
[2019-10-31] MEDS ORDERED: DOCUSATE SODIUM 100MG CAPSULE PO PRN (10:00)
[2019-10-31] MEDS ORDERED: AZITHROMYCIN 500MG in DEXTROSE 5% WATER 250ML IV SCH (10:15)
[2019-10-31] MEDS ORDERED: VANCOMYCIN 1500MG in DEXTROSE 5% WATER 250ML IV NR (11:00)
[2019-10-31] MEDS: FUROSEMIDE 40MG/4ML VIAL IV SCH (11:10)
[2019-10-31 11:17] LABS: *AMPHETAMINES SCREEN URINE NEGATIVE (NEGATIVE); *BARBITURATES SCREEN URINE NEGATIVE (NEGATIVE); *BENZODIAZEPINES SCREEN URINE NEGATIVE (NEGATIVE); *COCAINE SCREEN URINE PRESUMTIVE POSITIVE (NEGATIVE); METHADONE URINE SCREEN NEGATIVE (NEGATIVE); OPIATES URINE SCREEN NEGATIVE (NEGATIVE)
[2019-10-31 11:18] LABS: CANNABINOID URINE SCREEN PRESUMTIVE POSITIVE (NEGATIVE); PHENCYCLIDINE URINE SCREEN NEGATIVE (NEGATIVE)
[2019-10-31 12:10] LABS: CLARITY URINE CLEAR (CLEAR); COLOR URINE YELLOW (YELLOW); KETONES URINE NEGATIVE (NEGATIVE); LEUKOCYTE ESTERASE URINE NEGATIVE (NEGATIVE); NITRITE URINE NEGATIVE (NEGATIVE); OCCULT BLOOD URINE NEGATIVE (NEGATIVE); PH URINE 6.5 (4.5-8.0); PROTEIN URINE NEGATIVE (NEGATIVE); SPECIFIC GRAVITY URINE 1.007 (1.005-1.030)
[2019-10-31 12:23] LABS: BG BASE EXCESS -0.7 mmol/L (-2.0-2.0); BG CARBOXYHEMOGLOBIN 0.3 % (0.5-1.5); BG DEOXYHEMOGLOBIN 3.8 % (0.0-5.0); BG FRACTION INSPIRED OXYGEN 28; BG HCO3 ACT 22.8 mmol/L (22.0-26.0); BG METHEMOGLOBIN 0.3 % (0.0-1.5); BG OXYGEN SATURATION 96.2 % (92.0-98.5); BG OXYHEMOGLOBIN 95.6 % (94.0-97.0); BG PCO2 33.3 mmHg (35.0-45.0); BG PH 7.453 (7.350-7.450); BG PO2 85.9 mmHg (75.0-100.0); BG SAMPLE SITE RIGHT BRACHIAL; BG TOTAL HEMOGLOBIN 10.5 g/dL (12.0-18.0); BG VENT MODE NASAL CANNULA
[2019-10-31] MEDS: CARVEDILOL 3.125 MG TABLET PO SCH ×2 (12:30→21:44)
[2019-10-31] MEDS: LISINOPRIL 2.5MG TABLET PO SCH (12:30)
[2019-10-31] MEDS: AMIODARONE HCL 200 MG TABLET PO SCH (12:30)
[2019-10-31 12:33] LABS: HEMATOCRIT. 33.1 % (42.0-52.0); HEMOGLOBIN. 10.4 g/dL (14.0-18.0); MEAN CORPUSCULAR VOLUME 85.5 fL (80.0-94.0); MEAN PLATELET VOLUME 7.5 fl (7.4-10.4); PLATELET 400 x1000/uL (130-400); RED BLOOD CELL COUNT 3.86 mill/uL (4.7-6.1); RED CELL DISTRIBUTION WIDTH 18.9 % (11.6-14.6)
[2019-10-31 12:44] LABS: CHLORIDE 113 mEq/L (98-107)
[2019-10-31 12:54] LABS: PLATELET ESTIMATE NORMAL
[2019-10-31] MEDS: SODIUM CHLORIDE 0.9% INJ 3ML FLUSH IVF SCH (14:00)
[2019-10-31 14:08] LABS: CREATINE KINASE MB FRACTION 1.3 ng/mL (0.5-3.6)
[2019-10-31 17:15] VITALS: BP 121/84
[2019-10-31] MEDS ORDERED: VANCOMYCIN 1 G PREMIX 200 ML IV SCH (18:00)
[2019-10-31 21:00] VITALS: BP 125/82
[2019-10-31] MEDS: IPRATROPIUM/ALBUTEROL 0.5-3(2.5)MG/3ML NEB HHN SCH (22:08)
[2019-11-01] VITALS: BP 115/88
[2019-11-01 00:48] LABS: CREATINE KINASE MB FRACTION 1.1 ng/mL (0.5-3.6)
[2019-11-01] MEDS: IPRATROPIUM/ALBUTEROL 0.5-3(2.5)MG/3ML NEB HHN SCH ×4 (01:27→21:27)
[2019-11-01 06:05] LABS: HEMOGLOBIN. 9.6 g/dL (14.0-18.0); MEAN CORPUSCULAR HEMOGLOBIN 27.2 pg (28.0-32.0); MEAN CORPUSCULAR VOLUME 84.8 fL (80.0-94.0); MEAN PLATELET VOLUME 7.9 fl (7.4-10.4); PLATELET 399 x1000/uL (130-400); RED BLOOD CELL COUNT 3.54 mill/uL (4.7-6.1); RED CELL DISTRIBUTION WIDTH 19.2 % (11.6-14.6)
[2019-11-01 06:42] LABS: CHLORIDE 109 mEq/L (98-107)
[2019-11-01 06:53] LABS: HDL CHOLESTEROL 33 mg/dL (40-59); LDL CHOLESTEROL 32 mg/dL (5-100)
[2019-11-01 07:55] LABS: NUCLEATED RED BLOOD CELLS 1 /100 WBC; PLATELET ESTIMATE NORMAL
[2019-11-01 08:00] VITALS: BP 126/69
[2019-11-01] MEDS: FUROSEMIDE 40MG/4ML VIAL IV SCH (09:38)
[2019-11-01] MEDS: LISINOPRIL 2.5MG TABLET PO SCH (09:39)
[2019-11-01] MEDS: AMIODARONE HCL 200 MG TABLET PO SCH (09:39)
[2019-11-01] MEDS: CARVEDILOL 3.125 MG TABLET PO SCH ×2 (09:39→21:38)
[2019-11-01] MEDS ORDERED: CEFTRIAXONE 1 G PREMIX 50 ML IV SCH ×2 (10:00)
[2019-11-01] MEDS ORDERED: AZITHROMYCIN 500 MG in DEXT 5% WATER 250 ML IV SCH (11:00)
[2019-11-01] MEDS: VANCOMYCIN 1 G PREMIX 200 ML IV SCH ×2 (11:17→21:39)
[2019-11-01 12:00] VITALS: BP 138/54
[2019-11-01] MEDS: CEFTRIAXONE 1 G PREMIX 50 ML IV SCH (14:04)
[2019-11-01] MEDS: SODIUM CHLORIDE 0.9% INJ 3ML FLUSH IVF SCH ×2 (14:04→21:38)
[2019-11-01] MEDS: ENOXAPARIN 40MG/0.4ML SYR SUBCUT SCH ×2 (15:37→15:39)
[2019-11-01] MEDS: AZITHROMYCIN 500 MG in DEXT 5% WATER 250 ML IV SCH (15:38)
[2019-11-01 16:00] VITALS: BP 125/79
[2019-11-01 18:43] LABS: BG BASE EXCESS -3.3 mmol/L (-2.0-2.0); BG CARBOXYHEMOGLOBIN 0.3 % (0.5-1.5); BG DEOXYHEMOGLOBIN 3.5 % (0.0-5.0); BG FRACTION INSPIRED OXYGEN 21; BG HCO3 ACT 18.9 mmol/L (22.0-26.0); BG METHEMOGLOBIN 0.3 % (0.0-1.5); BG OXYGEN SATURATION 96.5 % (92.0-98.5); BG OXYHEMOGLOBIN 95.9 % (94.0-97.0); BG PCO2 25.5 mmHg (35.0-45.0); BG PH 7.487 (7.350-7.450); BG PO2 79.5 mmHg (75.0-100.0); BG SAMPLE SITE RIGHT RADIAL; BG TOTAL HEMOGLOBIN 11.2 g/dL (12.0-18.0); BG VENT MODE ROOM AIR
[2019-11-01] MEDS ORDERED: LORAZEPAM 2MG/ML CPJ IV PRN (19:15)
[2019-11-01] MEDS ORDERED: METHYLPREDNISOLONE SOD SUCC 125 MG/2 ML VIAL IV NR (19:30)
[2019-11-01 20:20] VITALS: BP 100/70
[2019-11-01] MEDS ORDERED: IOHEXOL-350 100 ML BOTTLE ONE (21:50)
[2019-11-02 00:01] VITALS: BP 110/82
[2019-11-02] MEDS: IPRATROPIUM/ALBUTEROL 0.5-3(2.5)MG/3ML NEB HHN SCH ×4 (01:20→20:17)
[2019-11-02 04:00] VITALS: BP 109/84
[2019-11-02] MEDS: SODIUM CHLORIDE 0.9% INJ 3ML FLUSH IVF SCH ×2 (05:27→14:12)
[2019-11-02 08:00] VITALS: BP 112/85
[2019-11-02] MEDS: FUROSEMIDE 40MG/4ML VIAL IV SCH (10:01)
[2019-11-02] MEDS: ENOXAPARIN 40MG/0.4ML SYR SUBCUT SCH (10:01)
[2019-11-02] MEDS: AMIODARONE HCL 200 MG TABLET PO SCH (10:01)
[2019-11-02] MEDS: LISINOPRIL 2.5MG TABLET PO SCH (10:01)
[2019-11-02] MEDS: CARVEDILOL 3.125 MG TABLET PO SCH ×2 (10:01→21:00)
[2019-11-02] MEDS: VANCOMYCIN 1 G PREMIX 200 ML IV SCH (10:12)
[2019-11-02 12:00] VITALS: BP 107/78
[2019-11-02] MEDS: AZITHROMYCIN 500 MG in DEXT 5% WATER 250 ML IV SCH (14:08)
[2019-11-02] MEDS: CEFTRIAXONE 1 G PREMIX 50 ML IV SCH (14:09)
[2019-11-02] MEDS ORDERED: IPRA3AMP9 HHN (17:51)
[2019-11-02] MEDS ORDERED: LISI2.5T47 PO (17:51)
[2019-11-02] MEDS ORDERED: AZIT500T3 MT (17:51)
[2019-11-02] MEDS ORDERED: FURO-151 MT (17:51)
[2019-11-02] MEDS ORDERED: COR3 PO (17:51)
[2019-11-02] MEDS ORDERED: AMI2 PO (17:51)
[2019-11-02 20:00] VITALS: BP 108/79
[2019-11-03] VITALS: BP 118/74
[2019-11-03 04:00] VITALS: BP 115/89
[2019-11-03] MEDS: SODIUM CHLORIDE 0.9% INJ 3ML FLUSH IVF SCH ×3 (07:14→21:30)
[2019-11-03] MEDS: VANCOMYCIN 1 G PREMIX 200 ML IV SCH ×2 (07:14→11:53)
[2019-11-03 07:18] LABS: HEMATOCRIT. 32.1 % (42.0-52.0); HEMOGLOBIN. 10.3 g/dL (14.0-18.0); MEAN CORPUSCULAR HEMOGLOBIN 27.5 pg (28.0-32.0); MEAN CORPUSCULAR VOLUME 85.2 fL (80.0-94.0); MEAN PLATELET VOLUME 8.2 fl (7.4-10.4); PLATELET 396 x1000/uL (130-400); RED BLOOD CELL COUNT 3.76 mill/uL (4.7-6.1); RED CELL DISTRIBUTION WIDTH 19.5 % (11.6-14.6)
[2019-11-03 08:00] VITALS: BP 120/94
[2019-11-03 08:25] LABS: CHLORIDE 104 mEq/L (98-107)
[2019-11-03] MEDS: IPRATROPIUM/ALBUTEROL 0.5-3(2.5)MG/3ML NEB HHN SCH ×4 (08:55→19:55)
[2019-11-03] MEDS: AMIODARONE HCL 200 MG TABLET PO SCH (09:57)
[2019-11-03] MEDS: CARVEDILOL 3.125 MG TABLET PO SCH ×2 (09:58→21:29)
[2019-11-03] MEDS: FUROSEMIDE 40MG/4ML VIAL IV SCH (09:59)
[2019-11-03] MEDS: LISINOPRIL 2.5MG TABLET PO SCH (09:59)
[2019-11-03] MEDS: BICALUTAMIDE 50 MG TABLET PO SCH (10:00)
[2019-11-03] MEDS: ENOXAPARIN 40MG/0.4ML SYR SUBCUT SCH (10:02)
[2019-11-03 10:58] LABS: PLATELET ESTIMATE NORMAL
[2019-11-03 11:03] LABS: CARCINO EMBRYONIC ANTIGEN 1.1 ng/ml
[2019-11-03 11:13] LABS: PROSTRATE SPECIFIC AG TOTAL > 100.00 ng/mL (0.0-4.0)
[2019-11-03 12:33] VITALS: BP 112/82
[2019-11-03] MEDS: AZITHROMYCIN 500 MG in DEXT 5% WATER 250 ML IV SCH (14:39)
[2019-11-03] MEDS ORDERED: BICA50TA8 MT (14:46)
[2019-11-03 16:00] VITALS: BP 102/77
[2019-11-03] MEDS: CEFTRIAXONE 1 G PREMIX 50 ML IV SCH ×2 (17:03→17:12)
[2019-11-03 20:00] VITALS: BP 123/94
[2019-11-03] MEDS ORDERED: ZOLPIDEM TARTRATE 5MG TABLET PO PRN (21:45)
[2019-11-04] VITALS: BP 106/81
[2019-11-04] MEDS ORDERED: VANCOMYCIN 1 G PREMIX 200 ML IV SCH (02:00)
[2019-11-04] MEDS: IPRATROPIUM/ALBUTEROL 0.5-3(2.5)MG/3ML NEB HHN SCH ×3 (02:08→13:35)
[2019-11-04 04:00] VITALS: BP 122/88
[2019-11-04] MEDS: SODIUM CHLORIDE 0.9% INJ 3ML FLUSH IVF SCH (05:49)
[2019-11-04 08:00] VITALS: BP 106/68
[2019-11-04] MEDS: LISINOPRIL 2.5MG TABLET PO SCH (09:00)
[2019-11-04] MEDS: CARVEDILOL 3.125 MG TABLET PO SCH (09:00)
[2019-11-04] MEDS: FUROSEMIDE 40MG/4ML VIAL IV SCH (09:30)
[2019-11-04] MEDS: BICALUTAMIDE 50 MG TABLET PO SCH (09:30)
[2019-11-04] MEDS: ENOXAPARIN 40MG/0.4ML SYR SUBCUT SCH (09:30)
[2019-11-04] MEDS: AMIODARONE HCL 200 MG TABLET PO SCH (09:30)
[2019-11-04 10:59] VITALS: BP 106/68
[2019-11-04 12:00] VITALS: BP 111/81
[2019-11-04 12:22] VITALS: BP 111/81
== END 2019-11-04 14:09 | disposition home or self-care (01) | DRG 871 ==
LOC: ER 15:20 → EDBEDREQ 23:37 → EDBEDREQTM 23:37 → ENRESERV 10-31 15:56 → 5WST 10-31 16:53
PROVIDERS: ADMIT Family Medicine; ATTEND Family Medicine
DX: A41.9 Sepsis, unspecified organism (principal); I50.23 Acute on chronic systolic (congestive) heart failure; J18.9 Pneumonia, unspecified organism; J96.00 Acute respiratory failure, unspecified whether with hypoxia or hypercapnia; E46 Unspecified protein-calorie malnutrition; E87.2 Acidosis; I42.9 Cardiomyopathy, unspecified; J44.0 Chronic obstructive pulmonary disease with (acute) lower respiratory infection; R18.8 Other ascites; E78.5 Hyperlipidemia, unspecified; F14.10 Cocaine abuse, uncomplicated; I11.0 Hypertensive heart disease with heart failure; D64.9 Anemia, unspecified; N40.0 Benign prostatic hyperplasia without lower urinary tract symptoms; L98.499 Non-pressure chronic ulcer of skin of other sites with unspecified severity; C50.929 Malignant neoplasm of unspecified site of unspecified male breast; I27.20 Pulmonary hypertension, unspecified; I71.9 Aortic aneurysm of unspecified site, without rupture; I87.2 Venous insufficiency (chronic) (peripheral); Z85.46 Personal history of malignant neoplasm of prostate; Z91.19 Patient's noncompliance with other medical treatment and regimen; Z59.0 Homelessness; Z79.899 Other long term (current) drug therapy; Z79.82 Long term (current) use of aspirin; Z68.27 Body mass index [BMI] 27.0-27.9, adult
CPT/HCPCS: 36415; 36600; 71045; 71275; 80053; 80061; 80202; 80305; 81003; 82375; 82378; 82550; 82553; 82805; 83605; 83880; 84153; 84484; 85025; 93005; 93306; 94640; 96365; 96368; 96375; 99285; J0456; J0696; J1650; J1940; J2930; J3370; J7040; J7060; J7620; Q9967; G0103